=== PATIENT | male | born 1955 | race African-American/Black ===

== ENCOUNTER 2017-03-15 10:00 | Inpatient (IN) | payer OTHER ==
[2017-03-15 11:51] VITALS: BMI 24.1
[2017-03-15] MEDS ORDERED: P-EPHED 60MG/TRIPROLIDI 2.5MG TABLET PO PRN (17:33)
[2017-03-15] MEDS ORDERED: LOPERAMIDE HCL 2 MG CAPSULE PO PRN (17:33)
[2017-03-15] MEDS ORDERED: guaiFENesin/D-METHORPHAN HB 10 ML UNIT-DOSE CUPS PO PRN (17:33)
[2017-03-15] MEDS ORDERED: MAGNESIUM HYDROX 2400MG/30ML ORAL SUSPENSION 30 ML CUP PO PRN (17:33)
[2017-03-15] MEDS ORDERED: MAG HYDROX/AL HYDROX/SIMETH 30 ML UNIT-DOSE CUP PO PRN (17:33)
[2017-03-15] MEDS ORDERED: MAGNESIUM CITRATE 300 ML BOTTLE PO PRN (17:33)
[2017-03-15] MEDS ORDERED: ACETAMINOPHEN 325 MG TABLET (FP) PO PRN (17:33)
[2017-03-15] MEDS ORDERED: MENTHOL/PHENOL 1 EACH UD MM PRN (17:33)
[2017-03-15] MEDS ORDERED: NICOTINE POLACRILEX 2 MG GUM BC PRN (17:33)
[2017-03-15] MEDS ORDERED: diazePAM 5 MG TABLET PO PRN (17:33)
[2017-03-15] MEDS ORDERED: IBUPROFEN 400 MG TABLET (FP) PO PRN (17:33)
--- NOTE | 2017-03-15 17:33 | HP ---
COWS - Scale Resting Pulse: 0= [place] 80 or Below Sweatin= Chills/Flushing Restless Observation: 1= Difficult to Sit Still Pupil Size: 1= Pupils >than Normal Bone or Joint Aches: 1= Mild Discomfort Runny Nose/ Eye Tearin= Nasal Congestion GI Upset > 30mins: 2= Nausea/Diarrhea Tremor Observation: 2= Slight Tremor Visible Yawning Observation: 1= 1-2x During Session Anxiety or Irritability: 2=Irritable/Anxious Goose Flesh Skin: 3=Piloerection COWS Score: 15 Admission ROS S - HPI Chief Complaint: heroin withdrawal sx Allergies/Adverse Reactions: Allergies Allergy/AdvReac Type Severity Reaction Status Date / Time No Known Allergies Allergy Verified 03/15/17 16:28 History of Present Illness: 62 yo m w h/o opioid depenence using heroin daily, sniffs 2-3 bags, smokes marijuana several times a week. Last used heorin last night. no h/o seiuzres, no h/o dts PMHx neg no h/o od, no idu. reports heroin withdrawl sx present when he does nto use. se ROS Exam Limitations: No Limitations - Ebola screening Have you traveled outside of the country in the last 21 days: No Have you had contact with anyone from an Ebola affected area: No Have you been sick,other than usual withdrawal symptoms: No Do you have a fever: No - Review of Systems Constitutional: Chills, Diaphoresis, Night Sweats, Changes in sleep, Weakness, Unintentional Wgt. Loss EENT: reports: Nose Congestion Respiratory: reports: No Symptoms reported Cardiac: reports: No Symptoms Reported GI: reports: Constipated, Nausea, Poor Appetite, Poor Fluid Intake, Indigestion , Abdominal cramping : reports: No Symptoms Reported Musculoskeletal: reports: Back Pain Integumentary: reports: Flushing, Sweating Neuro: reports: Tremors, Weakness Endocrine: reports: No Symptoms Reported Hematology: reports: No Symptoms Reported Psychiatric: reports: Judgement Intact, Mood/Affect Appropiate, Orientated x3, Anxious, Depressed Other Systems: Reviewed and Negative Patient History - Patient Medical History Hx Anemia: No Hx Asthma: No Hx Chronic Obstructive Pulmonary Disease (COPD): No Hx Cancer: No Hx Cardiac Disorders: No Hx Congestive Heart Failure: No Hx Hypertension: No Hx Hypercholesterolemia: No Hx Pacemaker: No HX Cerebrovascular Accident: No Hx Seizures: No Hx Dementia: No Hx Diabetes: No Hx Gastrointestinal Disorders: No Hx Liver Disease: No Hx Genitourinary Disorders: No Hx Sexually Transmitted Disorders: No Hx Renal Disease (ESRD): No Hx Thyroid Disease: No Hx Human Immunodeficiency Virus (HIV): No Hx Hepatitis C: No Hx Depression: No Hx Suicide Attempt: No Hx Bipolar Disorder: No Hx Schizophrenia: No - Patient Surgical History Past Surgical History: No Anesthesia Reaction: No - PPD History Previous Implant?: Yes Documented Results: Positive w/o proof Implanted On Prior [facility] Admission?: No PPD to be Administered?: No - Reproductive History Patient is a Female of Child Bearing Age (11 -55 yrs old): No Patient : No - Smoking Cessation Smoking history: Current every day smoker Have you smoked in the past 12 months: Yes Aproximately how many cigarettes per day: 10 Hx Chewing Tobacco Use: No Initiated information on smoking cessation: Yes 'Breaking Loose' booklet given: 03/15/17 - Substance & Tx. History Hx Alcohol Use: No Hx Substance Use: Yes Substance Use Type: Heroin, Marijuana Hx Substance Use Treatment: Yes ([facility] 1 year ago, [facility] 2 mts ago) - Substances Abused Heroin Route: Inhalation Frequency: Daily Amount used: 3 bags and up Age of first use: 20 Date of Last Use: 03/14/17 Marijuana/Hashish Route: Smoking Frequency: 3-6 times per week Amount used: 1 joint Age of first use: 20 Date of Last Use: 03/08/17 Family Disease History - Family Disease History Family Disease History: Other: Father (alcohol ) Admission Physical Exam S - Vital Signs Vital Signs: Vital Signs - 24 hr 03/15/17 11:49 Temperature 96.2 F L Pulse Rate 57 L Respiratory 20 Rate Blood Pressure 116/74 - Physical General Appearance: Yes: Nourished, Appropriately Dressed, Disheveled, Thin, Tremorous, Irritable, Sweating, Anxious HEENTM: Yes: EOMI, Hearing grossly Normal, Normal ENT Inspection, Normocephalic , Normal Voice, ZEUS, Pharynx Normal, Nasal Congestion, Rhinorrhea Respiratory: Yes: Within Normal Limits, Chest Non-Tender, Lungs Clear, Normal Breath Sounds, No Respiratory Distress, No Accessory Muscle Use Neck: Yes: Within Normal Limits, No masses,lesions,Nodules, Supple, Trachea in good position Breast: Yes: Breast Exam Deferred Cardiology: Yes: Within Normal Limits, Regular Rhythm, Regular Rate, S1, S2 Abdominal: Yes: Normal Bowel Sounds, Non Tender, Flat, Soft Genitourinary: Yes: Within Normal Limits Back: Yes: Within Normal Limits, Normal Inspection Musculoskeletal: Yes: Within Normal Limits, full range of Motion, Gait Steady, Pelvis Stable Extremities: Yes: Normal Capillary Refill, Normal Range of Motion, Non-Tender, Tremors Neurological: Yes: hydraulic repairer II-XII NML intact, Fully Oriented, Alert, Motor Strength 5/5, Depressed Affect Integumentary: Yes: Normal Color, Warm, Diaphoresis, Moist Lymphatic: Yes: Within Normal Limits - Addiitonal Findings: withdrawal sx - Diagnostic (1) Opioid dependence with withdrawal Current Visit: Yes Status: Acute (2) Nicotine dependence Current Visit: Yes Status: Acute (3) Cannabis abuse Current Visit: Yes Status: Acute (4) Insomnia Current Visit: Yes Status: Acute Cleared for Admission [facility] - Detox or Rehab [facility] Level of Care: Medically Managed Detox Regimen/Protocol: Methadone [facility] Breath Alcohol Content Breath Alcohol Content: 0 Urine Drug Screen - Results Drug Screen Negative: No Urine Drug Screen Results: THC-Marijuana, OPI-Opiates
[2017-03-15] MEDS ORDERED: METHADONE HCL 10 MG TABLET (FOR DETOX USE ONLY) PO ONE ×2 (18:30→23:00)
[2017-03-15] MEDS: NICOTINE 14 MG/24 HOURS TOPICAL PATCH TD SCH (19:08)
[2017-03-15] MEDS: THIAMINE HCL 100 MG TABLET (FP) PO SCH (22:25)
[2017-03-16 01:22] LABS: URINE APPEARANCE CLEAR; URINE BILIRUBIN NEGATIVE (NEGATIVE); URINE BLOOD NEGATIVE (NEGATIVE); URINE COLOR LTYELLOW; URINE GLUCOSE (UA) NEGATIVE (NEGATIVE); URINE KETONE NEGATIVE (NEGATIVE); URINE NITRITE NEGATIVE (NEGATIVE); URINE PROTEIN NEGATIVE (NEGATIVE); URINE UROBILINOGEN NEGATIVE mg/dL (0.2-1.0)
[2017-03-16 09:43] LABS: MCH 33.3 pg (25.7-33.7); MCHC 33.5 g/dl (32.0-35.9); MEAN CELL VOLUME 99.3 fl (80-96); PLATELET COUNT 119 K/MM3 (134-434)
[2017-03-16] MEDS ORDERED: METHADONE HCL 10 MG TABLET (FOR DETOX USE ONLY) PO ONE (10:00)
[2017-03-16 10:19] LABS: ALBUMIN 3.3 g/dl (3.4-5.0); ALK PHOS 87 U/L (45-117); ANION GAP 5 (8-16); BILIRUBIN,TOTAL 0.4 mg/dL (0.2-1.0); CALCIUM 8.8 mg/dL (8.5-10.1); CO2 31 mmol/L (21-32); GLUCOSE,RANDOM 95 mg/dL (74-106); SGOT/AST 19 U/L (15-37); SGPT/ALT 25 U/L (12-78); TOT PROT 6.8 g/dl (6.4-8.2)
[2017-03-16] MEDS: PRENATAL VITAMINS W/ FOLIC ACID TABLET (FP) PO SCH (10:31)
[2017-03-16] MEDS: NICOTINE 14 MG/24 HOURS TOPICAL PATCH TD SCH (10:33)
[2017-03-16 10:40] LABS: URINE LEUK ESTERASE Negative (NEGATIVE)
--- NOTE | 2017-03-16 11:07 | PN ---
S COWS - Scale Resting Pulse: 0= [place] 80 or Below Sweatin= Chills/Flushing Restless Observation: 3= Extraneous Movement Pupil Size: 1= Pupils >than Normal Bone or Joint Aches: 2= Severe Diffuse Aches Runny Nose/ Eye Tearin= Runny Nose/Eyes GI Upset > 30mins: 2= Nausea/Diarrhea Tremor Observation of Outstretched Hands: 2= Slight Tremor Visible Yawning Observation: 1= 1-2x During Session Anxiety or Irritability: 2=Irritable/Anxious Goose Flesh Skin: 0=Smooth Skin COWS Score: 16 S Progress Note (SOAP) Subjective: alert,irritable,anxious,interrupted sleep,pain in the body and back,tremor Objective: 03/16/17 11:04 Vital Signs Temperature 97.5 F L 03/16/17 10:00 Pulse Rate 69 03/16/17 10:00 Respiratory Rate 18 03/16/17 10:00 Blood Pressure 111/73 03/16/17 10:00 O2 Sat by Pulse Oximetry (%) ekg sinus bradycardia,inverted t in 3 48/min no chest pain,no sob,no dizziness Laboratory Last Values WBC 7.0 K/mm3 (4.0-10.0) 03/16/17 07:00 RBC 3.60 M/mm3 (4.00-5.60) L 03/16/17 07:00 Hgb 12.0 GM/dL (11.7-16.9) 03/16/17 07:00 Hct 35.7 % (35.4-49) 03/16/17 07:00 MCV 99.3 fl (80-96) H 03/16/17 07:00 MCH 33.3 pg (25.7-33.7) 03/16/17 07:00 MCHC 33.5 g/dl (32.0-35.9) 03/16/17 07:00 RDW 13.0 % (11.9-15.9) 03/16/17 07:00 Plt Count 119 K/MM3 (134-434) L 03/16/17 07:00 MPV 9.0 fl (7.5-11.1) 03/16/17 07:00 Sodium 143 mmol/L (136-145) 03/16/17 07:00 Potassium 4.2 mmol/L (3.5-5.1) 03/16/17 07:00 Chloride 107 mmol/L (98-107) 03/16/17 07:00 Carbon Dioxide 31 mmol/L (21-32) 03/16/17 07:00 Anion Gap 5 (8-16) L 03/16/17 07:00 BUN 22 mg/dL (7-18) H 03/16/17 07:00 Creatinine 1.0 mg/dL (0.7-1.3) 03/16/17 07:00 Creat Clearance w eGFR > 60 (>60) 03/16/17 07:00 Random Glucose 95 mg/dL (74-106) 03/16/17 07:00 Calcium 8.8 mg/dL (8.5-10.1) 03/16/17 07:00 Total Bilirubin 0.4 mg/dL (0.2-1.0) 03/16/17 07:00 AST 19 U/L (15-37) 03/16/17 07:00 ALT 25 U/L (12-78) 03/16/17 07:00 Alkaline Phosphatase 87 U/L (45-117) 03/16/17 07:00 Total Protein 6.8 g/dl (6.4-8.2) 03/16/17 07:00 Albumin 3.3 g/dl (3.4-5.0) L 03/16/17 07:00 Urine Color Ltyellow 03/15/17 22:22 Urine Appearance Clear 03/15/17 22:22 Urine pH 6.0 (5.0-8.0) 03/15/17 22:22 Ur Specific [place] 1.015 (1.005-1.025) 03/15/17 22:22 Urine Protein Negative (NEGATIVE) 03/15/17 22:22 Urine Glucose (UA) Negative (NEGATIVE) 03/15/17 22:22 Urine Ketones Negative (NEGATIVE) 03/15/17 22:22 Urine Blood Negative (NEGATIVE) 03/15/17 22:22 Urine Nitrite Negative (NEGATIVE) 03/15/17 22:22 Urine Bilirubin Negative (NEGATIVE) 03/15/17 22:22 Urine Urobilinogen Negative mg/dL (0.2-1.0) 03/15/17 22:22 Ur Leukocyte Esterase Negative (NEGATIVE) 10/16/17 22:22 RPR Titer Nonreactive (NONREACTIVE) 03/16/17 07:00 Assessment: 03/16/17 11:07 withdrawal symptom Plan: continue detox
[2017-03-16 11:29] LABS: SICKLE CELL SCREEN NEGATIVE (NEGATIVE)
[2017-03-16] MEDS ORDERED: FLU VACCINE QUAD 60 MCG/0.5 ML (MDV 17-18) IM ONE (12:00)
[2017-03-16] MEDS: ZOLPIDEM TARTRATE 10 MG TABLET (PARK CARE ONLY) PO PRN (22:29)
[2017-03-16] MEDS: THIAMINE HCL 100 MG TABLET (FP) PO SCH (22:30)
[2017-03-17] MEDS ORDERED: METHADONE HCL 5 MG TABLET (FOR DETOX USE ONLY) PO ONE (10:00)
[2017-03-17] MEDS: PRENATAL VITAMINS W/ FOLIC ACID TABLET (FP) PO SCH (10:26)
[2017-03-17] MEDS: NICOTINE 14 MG/24 HOURS TOPICAL PATCH TD SCH (10:27)
--- NOTE | 2017-03-17 11:33 | PN ---
BHS COWS - Scale Resting Pulse: 0= [place] 80 or Below Sweatin= Chills/Flushing Restless Observation: 3= Extraneous Movement Pupil Size: 1= Pupils >than Normal Bone or Joint Aches: 2= Severe Diffuse Aches Runny Nose/ Eye Tearin= Runny Nose/Eyes GI Upset > 30mins: 2= Nausea/Diarrhea Tremor Observation of Outstretched Hands: 2= Slight Tremor Visible Yawning Observation: 1= 1-2x During Session Anxiety or Irritability: 2=Irritable/Anxious Goose Flesh Skin: 0=Smooth Skin COWS Score: 16 S Progress Note (SOAP) Subjective: alert,pain in body,and back,tremor,interrupted sleep Objective: 03/17/17 11:33 Vital Signs Temperature 96.9 F L 03/17/17 10:00 Pulse Rate 65 03/17/17 10:00 Respiratory Rate 20 03/17/17 10:00 Blood Pressure 117/68 03/17/17 10:00 O2 Sat by Pulse Oximetry (%) Laboratory Last Values WBC 7.0 K/mm3 (4.0-10.0) 03/16/17 07:00 RBC 3.60 M/mm3 (4.00-5.60) L 03/16/17 07:00 Hgb 12.0 GM/dL (11.7-16.9) 03/16/17 07:00 Hct 35.7 % (35.4-49) 03/16/17 07:00 MCV 99.3 fl (80-96) H 03/16/17 07:00 MCH 33.3 pg (25.7-33.7) 03/16/17 07:00 MCHC 33.5 g/dl (32.0-35.9) 03/16/17 07:00 RDW 13.0 % (11.9-15.9) 03/16/17 07:00 Plt Count 119 K/MM3 (134-434) L 03/16/17 07:00 MPV 9.0 fl (7.5-11.1) 03/16/17 07:00 Sickle Cell Screen Negative (NEGATIVE) 03/16/17 07:00 Sodium 143 mmol/L (136-145) 03/16/17 07:00 Potassium 4.2 mmol/L (3.5-5.1) 03/16/17 07:00 Chloride 107 mmol/L (98-107) 03/16/17 07:00 Carbon Dioxide 31 mmol/L (21-32) 03/16/17 07:00 Anion Gap 5 (8-16) L 03/16/17 07:00 BUN 22 mg/dL (7-18) H 03/16/17 07:00 Creatinine 1.0 mg/dL (0.7-1.3) 03/16/17 07:00 Creat Clearance w eGFR > 60 (>60) 03/16/17 07:00 Random Glucose 95 mg/dL (74-106) 03/16/17 07:00 Calcium 8.8 mg/dL (8.5-10.1) 03/16/17 07:00 Total Bilirubin 0.4 mg/dL (0.2-1.0) 03/16/17 07:00 AST 19 U/L (15-37) 03/16/17 07:00 ALT 25 U/L (12-78) 03/16/17 07:00 Alkaline Phosphatase 87 U/L (45-117) 03/16/17 07:00 Total Protein 6.8 g/dl (6.4-8.2) 03/16/17 07:00 Albumin 3.3 g/dl (3.4-5.0) L 03/16/17 07:00 Urine Color Ltyellow 03/15/17 22:22 Urine Appearance Clear 03/15/17 22:22 Urine pH 6.0 (5.0-8.0) 03/15/17 22:22 Ur Specific [place] 1.015 (1.005-1.025) 03/15/17 22:22 Urine Protein Negative (NEGATIVE) 03/15/17 22:22 Urine Glucose (UA) Negative (NEGATIVE) 03/15/17 22:22 Urine Ketones Negative (NEGATIVE) 03/15/17 22:22 Urine Blood Negative (NEGATIVE) 03/15/17 22:22 Urine Nitrite Negative (NEGATIVE) 03/15/17 22:22 Urine Bilirubin Negative (NEGATIVE) 03/15/17 22:22 Urine Urobilinogen Negative mg/dL (0.2-1.0) 03/15/17 22:22 Ur Leukocyte Esterase Negative (NEGATIVE) 03/15/17 22:22 RPR Titer Nonreactive (NONREACTIVE) 03/16/17 07:00 Hepatitis C Antibody 0.1 s/co ratio (0.0-0.9) 03/15/17 07:00 Assessment: 03/17/17 11:34 withdrawal symptom Plan: continue detox
--- NOTE | 2017-03-17 12:00 | EKG ---
Test Reason : Blood Pressure : / mmHG Vent. Rate : 048 BPM Atrial Rate : 048 BPM P-R Int : 208 ms QRS Dur : 110 ms QT Int : 428 ms P-R-T Axes : 054 026 016 degrees QTc Int : 382 ms SINUS BRADYCARDIA INCOMPLETE RIGHT BUNDLE BRANCH BLOCK SEPTAL INFARCT , AGE UNDETERMINED ABNORMAL ECG NO PREVIOUS ECGS AVAILABLE Confirmed by STEVENSON HUERTA, AIDA ([id number]) on 03/17/2017 11:59:37 AM Referred By: Confirmed By:AIDA GAMINO MD
[2017-03-17] MEDS ORDERED: COLLOIDAL OATMEAL 1 BAR EACH TP PRN (14:11)
[2017-03-17] MEDS: THIAMINE HCL 100 MG TABLET (FP) PO SCH (22:26)
[2017-03-17] MEDS: ZOLPIDEM TARTRATE 10 MG TABLET (PARK CARE ONLY) PO PRN (22:27)
[2017-03-18] MEDS ORDERED: METHADONE HCL 5 MG TABLET (FOR DETOX USE ONLY) PO ONE (10:00)
--- NOTE | 2017-03-18 10:42 | PN ---
BHS Progress Note (SOAP) Subjective: alert,irritable,anxious,interrupted sleep,pain in the body Objective: 03/18/17 10:41 Vital Signs Temperature 97.9 F 03/18/17 09:53 Pulse Rate 65 03/18/17 09:53 Respiratory Rate 18 03/18/17 09:53 Blood Pressure 116/66 03/18/17 09:53 O2 Sat by Pulse Oximetry (%) Assessment: 03/18/17 10:41 withdrawal symptom Plan: continue detox
[2017-03-18] MEDS: PRENATAL VITAMINS W/ FOLIC ACID TABLET (FP) PO SCH (10:55)
[2017-03-18] MEDS: NICOTINE 14 MG/24 HOURS TOPICAL PATCH TD SCH (10:58)
[2017-03-18] MEDS: THIAMINE HCL 100 MG TABLET (FP) PO SCH (22:22)
[2017-03-18] MEDS: hydrOXYzine PAMOATE 50 MG CAPSULE (FP) PO PRN (22:24)
--- NOTE | 2017-03-19 09:45 | PN ---
S Progress Note (SOAP) Subjective: alert,irritable,anxious,interrupted sleep Objective: 03/19/17 09:44 Vital Signs Temperature 98 F 03/19/17 06:31 Pulse Rate 62 03/19/17 06:31 Respiratory Rate 16 03/19/17 06:31 Blood Pressure 102/51 03/19/17 06:31 O2 Sat by Pulse Oximetry (%) Assessment: 03/19/17 09:44 withdrawal symptom Plan: continue detox,discharge in am
[2017-03-19] MEDS ORDERED: METHADONE HCL 10 MG TABLET (FOR DETOX USE ONLY) PO ONE (10:00)
[2017-03-19] MEDS: PRENATAL VITAMINS W/ FOLIC ACID TABLET (FP) PO SCH (10:40)
[2017-03-19] MEDS: NICOTINE 14 MG/24 HOURS TOPICAL PATCH TD SCH (10:40)
[2017-03-19] MEDS: THIAMINE HCL 100 MG TABLET (FP) PO SCH (22:42)
[2017-03-19] MEDS: hydrOXYzine PAMOATE 50 MG CAPSULE (FP) PO PRN (22:43)
[2017-03-20] MEDS ORDERED: METHADONE HCL 5 MG TABLET (FOR DETOX USE ONLY) PO ONE (06:00)
--- NOTE | 2017-03-20 08:39 | DS ---
[facility] Detox Discharge Summary Admission Date: 03/15/17 Discharge Date: 03/20/17 - History Present History: Opioid Dependence Pertinent Past History: above - Physical Exam Results Vital Signs: Vital Signs Temperature 97.7 F 03/20/17 06:33 Pulse Rate 66 03/20/17 06:33 Respiratory Rate 18 03/20/17 06:33 Blood Pressure 100/60 03/20/17 06:33 O2 Sat by Pulse Oximetry (%) Pertinent Admission Physical Exam Findings: admitted in withdrawal medically stable on dc detox completed dc today Laboratory Tests 03/15/17 03/15/17 03/16/17 07:00 22:22 07:00 WBC 7.0 RBC 3.60 L Hgb 12.0 Hct 35.7 MCV 99.3 H MCH 33.3 MCHC 33.5 RDW 13.0 Plt Count 119 L MPV 9.0 Sickle Cell Screen Negative Sodium Potassium Chloride Carbon Dioxide Anion Gap BUN Creatinine Creat Clearance w eGFR Random Glucose Calcium Total Bilirubin AST ALT Alkaline Phosphatase Total Protein Albumin Urine Color Ltyellow Urine Appearance Clear Urine pH 6.0 Ur Specific [place] 1.015 Urine Protein Negative Urine Glucose (UA) Negative Urine Ketones Negative Urine Blood Negative Urine Nitrite Negative Urine Bilirubin Negative Urine Urobilinogen Negative Ur Leukocyte Esterase Negative RPR Titer Hepatitis C Antibody 0.1 03/16/17 03/16/17 07:00 07:00 WBC RBC Hgb Hct MCV MCH MCHC RDW Plt Count MPV Sickle Cell Screen Sodium 143 Potassium 4.2 Chloride 107 Carbon Dioxide 31 Anion Gap 5 L BUN 22 H Creatinine 1.0 Creat Clearance w eGFR > 60 Random Glucose 95 Calcium 8.8 Total Bilirubin 0.4 AST 19 ALT 25 Alkaline Phosphatase 87 Total Protein 6.8 Albumin 3.3 L Urine Color Urine Appearance Urine pH Ur Specific [place] Urine Protein Urine Glucose (UA) Urine Ketones Urine Blood Urine Nitrite Urine Bilirubin Urine Urobilinogen Ur Leukocyte Esterase RPR Titer Nonreactive Hepatitis C Antibody Vital Signs - 24 hr 03/19/17 03/19/17 03/19/17 09:47 14:08 18:07 Temperature 98.1 F 98.8 F 97.7 F Pulse Rate 72 68 69 Respiratory 18 16 20 Rate Blood Pressure 106/72 126/72 123/67 03/19/17 03/20/17 03/20/17 23:48 00:30 03:30 Temperature 97.7 F Pulse Rate 66 Respiratory 18 18 18 Rate Blood Pressure 134/62 03/20/17 06:33 Temperature 97.7 F Pulse Rate 66 Respiratory 18 Rate Blood Pressure 100/60 - Treatment Hospital Course: Detox Protocol Followed, Detoxed Safely, Responded well, Discharged Condition Good, Rehab Referral Accepted - Medication Discharge Medications: Ambulatory Orders NK [No Known Home Medication] 03/15/17 - Diagnosis (1) Cannabis abuse Current Visit: Yes Status: Acute (2) Nicotine dependence Current Visit: Yes Status: Acute (3) Opioid dependence with withdrawal Current Visit: Yes Status: Acute - AMA Did Patient Leave Against Medical Advice: No
[2017-03-20 11:11] VITALS: BP 126/65; PULSE 82; TEMP 98.2
== END 2017-03-20 11:05 | disposition home or self-care (01) | DRG 773 ==
LOC: YASAS 10:00 → Y6N 17:52
PROVIDERS: ADMIT Internal Medicine; ATTEND Internal Medicine
PROC: HZ2ZZZZ Detoxification Services for Substance Abuse Treatment (ICD-10-PCS; principal; 2017-03-15)
DX: F11.23 Opioid dependence with withdrawal (principal); F12.10 Cannabis abuse, uncomplicated; F17.210 Nicotine dependence, cigarettes, uncomplicated; G47.00 Insomnia, unspecified
CPT/HCPCS: 36415; 71020-TC; 80053; 81003; 85027; 85660; 86593; 86803; 90688; 93005; 93010; G0008

== ENCOUNTER 2017-04-30 13:24 | Inpatient (IN) | payer OTHER ==
[2017-04-30 14:00] VITALS: BMI 23.8
--- NOTE | 2017-04-30 17:49 | HP ---
COWS - Scale Resting Pulse: 0= [place] 80 or Below Sweatin= Chills/Flushing Restless Observation: 3= Extraneous Movement Pupil Size: 0= Normal to Room Light Bone or Joint Aches: 2= Severe Diffuse Aches Runny Nose/ Eye Tearin= Runny Nose/Eyes GI Upset > 30mins: 1= Stomach Cramp Tremor Observation: 2= Slight Tremor Visible Yawning Observation: 1= 1-2x During Session Anxiety or Irritability: 2=Irritable/Anxious Goose Flesh Skin: 3=Piloerection COWS Score: 17 Admission ROS [facility] Chief Complaint: "I'm here because I was mandated by [facility] Public Assistance Program." Patient is here to Detox from Heroin. Allergies/Adverse Reactions: Allergies Allergy/AdvReac Type Severity Reaction Status Date / Time No Known Allergies Allergy Verified 04/30/17 16:09 History of Present Illness: Patient is a 62 YO male here to Detox form Heroin. Patient has had one previous Detox admission at [facility] in 02/2017. Patient also had previous detox admissions at [facility] (2014) and [facility] (2015), and [facility] (2014). Longest period of non-drug use in recent years: approx. 13 months (2013 - 2014). Exam Limitations: No Limitations - Ebola screening Have you traveled outside of the country in the last 21 days: No (N) Have you had contact with anyone from an Ebola affected area: No Have you been sick,other than usual withdrawal symptoms: No Do you have a fever: No - Review of Systems Constitutional: Chills, Diaphoresis, Fever, Loss of Appetite, Malaise, Night Sweats, Changes in sleep, Unintentional Wgt. Loss (Lost approx. 15 lbs. over last 6 months.) EENT: reports: No Symptoms Reported Respiratory: reports: No Symptoms reported Cardiac: reports: Palpitations GI: reports: Constipated, Poor Appetite, Indigestion, Abdominal cramping : reports: Other (Occasional Urinary Hesitancy.) Musculoskeletal: reports: Back Pain, Muscle Pain Integumentary: reports: No Symptoms Reported Neuro: reports: Headache, Tremors Endocrine: reports: No Symptoms Reported Hematology: reports: No Symptoms Reported Psychiatric: reports: No Sypmtoms Reported, Judgement Intact, Mood/Affect Appropiate, Orientated x3, Anxious Other Systems: Reviewed and Negative Patient History - Patient Medical History Hx Anemia: No Hx Asthma: No Hx Chronic Obstructive Pulmonary Disease (COPD): No Hx Cancer: No Hx Cardiac Disorders: No Hx Congestive Heart Failure: No Hx Hypertension: No Hx Hypercholesterolemia: No Hx Pacemaker: No HX Cerebrovascular Accident: No Hx Seizures: No Hx Dementia: No Hx Diabetes: No Hx Gastrointestinal Disorders: No Hx Liver Disease: No Hx Genitourinary Disorders: No Hx Sexually Transmitted Disorders: No Hx Renal Disease (ESRD): No Hx Thyroid Disease: No Hx Human Immunodeficiency Virus (HIV): No (Negative History.) Hx Hepatitis C: No (Last Tested: 02/2017: NEGATIVE.) Hx Depression: No Hx Suicide Attempt: No (PATIENT DENIES CURRENT SI / HI.) Hx Bipolar Disorder: No Hx Schizophrenia: No Other Medical History: DNENIES. - Patient Surgical History Past Surgical History: No Hx Neurologic Surgery: No Hx Cataract Extraction: No Hx Cardiac Surgery: No Hx Lung Surgery: No Hx Breast Surgery: No Hx Breast Biopsy: No Hx Abdominal Surgery: No Hx Appendectomy: No Hx Cholecystectomy: No Hx Genitourinary Surgery: No Hx Orthopedic Surgery: No Other Surgical History: DENIES. Anesthesia Reaction: No - PPD History Previous Implant?: Yes Documented Results: Positive w/proof (CXR at [facility] (02/2017): NEGATIVE for Acute Disease. Completed Full Course of antibiotic Treatment in past.) Implanted On Prior [facility] Admission?: No PPD to be Administered?: No - Reproductive History Patient is a Female of Child Bearing Age (11 -55 yrs old): No (PATIENT IS MALE.) - Smoking Cessation Smoking history: Current every day smoker Have you smoked in the past 12 months: Yes Aproximately how many cigarettes per day: 10 Cigars Per Day: 0 Hx Chewing Tobacco Use: No Initiated information on smoking cessation: Yes 'Breaking Loose' booklet given: 04/30/17 (GIVEN ON UNIT.) - Substance & Tx. History Hx Alcohol Use: No Hx Substance Use: Yes Substance Use Type: Cocaine, Heroin, Marijuana Hx Substance Use Treatment: Yes (Detox admission at [facility]: 02/2017. Prior Detox admissions at other locations) - Substances Abused Heroin Route: Inhalation Frequency: Daily Amount used: 2 bags Age of first use: 20 Date of Last Use: 04/29/17 Cocaine Route: Inhalation Frequency: 1-2 times per week Amount used: $20 Age of first use: 20 Date of Last Use: 04/27/17 Marijuana/Hashish Route: Smoking Frequency: 1-2 times per week Amount used: 1 bag Age of first use: 20 Date of Last Use: 04/23/17 Family Disease History - Family Disease History Family Disease History: Other: Father (Alcohol, .), Mother (Kidney disease, .) Admission Physical Exam [facility] - Vital Signs Vital Signs: Vital Signs - 24 hr 04/30/17 13:58 Temperature 98.8 F Pulse Rate 80 Respiratory 18 Rate Blood Pressure 140/80 - Physical General Appearance: Yes: No Apparent Distress, Nourished, Appropriately Dressed , Tremorous, Anxious HEENTM: Yes: Hearing grossly Normal, Normocephalic, Normal Voice, ZEUS, Pharynx Normal Respiratory: Yes: Chest Non-Tender, Lungs Clear, No Respiratory Distress, No Accessory Muscle Use Neck: Yes: No masses,lesions,Nodules, Supple, Trachea in good position Breast: Yes: Breast Exam Deferred Cardiology: Yes: Regular Rhythm, Regular Rate, S1, S2 Abdominal: Yes: Normal Bowel Sounds, Non Tender, Flat, Soft Genitourinary: Yes: Within Normal Limits Back: Yes: Decreased Range of Motion Musculoskeletal: Yes: Gait Steady, Back pain Extremities: Yes: Normal Capillary Refill, Normal Range of Motion, Non-Tender, Tremors Neurological: Yes: Fully Oriented, Alert, Normal Mood/Affect, Normal Response Integumentary: Yes: Normal Color, Dry, Warm Lymphatic: Yes: Within Normal Limits - Diagnostic (1) Cannabis dependence, uncomplicated Current Visit: Yes Status: Chronic (2) Cocaine dependence, uncomplicated Current Visit: Yes Status: Acute (3) Nicotine dependence Current Visit: Yes Status: Chronic Qualifiers: Nicotine product type: cigarettes Substance use status: uncomplicated Qualified Code(s): F17.210 - Nicotine dependence, cigarettes, uncomplicated (4) Opioid dependence with withdrawal Current Visit: Yes Status: Acute (5) History of positive PPD Current Visit: Yes Status: Acute Comment: Treated. Cleared for Admission [facility] - Detox or Rehab [facility] Level of Care: Medically Managed Detox Regimen/Protocol: Methadone [facility] Breath Alcohol Content Breath Alcohol Content: 0 Urine Drug Screen - Results Drug Screen Negative: No Urine Drug Screen Results: THC-Marijuana, CLAU-Cocaine, OPI-Opiates, MTD- Methadone
[2017-04-30] MEDS ORDERED: guaiFENesin/D-METHORPHAN HB 10 ML UNIT-DOSE CUPS PO PRN (18:17)
[2017-04-30] MEDS ORDERED: NICOTINE POLACRILEX 2 MG GUM BC PRN (18:17)
[2017-04-30] MEDS ORDERED: IBUPROFEN 400 MG TABLET (FP) PO PRN (18:17)
[2017-04-30] MEDS ORDERED: MAG HYDROX/AL HYDROX/SIMETH 30 ML UNIT-DOSE CUP PO PRN (18:17)
[2017-04-30] MEDS ORDERED: LOPERAMIDE HCL 2 MG CAPSULE PO PRN (18:17)
[2017-04-30] MEDS ORDERED: MAGNESIUM HYDROX 2400MG/30ML ORAL SUSPENSION 30 ML CUP PO PRN (18:17)
[2017-04-30] MEDS ORDERED: METHADONE HCL 10 MG TABLET (FOR DETOX USE ONLY) PO ONE ×2 (18:17→23:00)
[2017-04-30] MEDS ORDERED: MENTHOL/PHENOL 1 EACH UD MM PRN (18:17)
[2017-04-30] MEDS ORDERED: MAGNESIUM CITRATE 300 ML BOTTLE PO PRN (18:17)
[2017-04-30] MEDS ORDERED: P-EPHED 60MG/TRIPROLIDI 2.5MG TABLET PO PRN (18:17)
[2017-04-30] MEDS ORDERED: ACETAMINOPHEN 325 MG TABLET (FP) PO PRN (18:17)
[2017-04-30] MEDS: THIAMINE HCL 100 MG TABLET (FP) PO SCH (22:30)
[2017-04-30] MEDS: diazePAM 5 MG TABLET PO PRN (22:32)
[2017-05-01 01:35] LABS: URINE APPEARANCE CLOUDY; URINE BILIRUBIN NEGATIVE (NEGATIVE); URINE BLOOD NEGATIVE (NEGATIVE); URINE COLOR AMBER; URINE GLUCOSE (UA) NEGATIVE (NEGATIVE); URINE KETONE TRACE (NEGATIVE); URINE NITRITE NEGATIVE (NEGATIVE)
[2017-05-01 01:37] LABS: URINE PROTEIN 1+ (NEGATIVE)
[2017-05-01 02:07] LABS: CALCIUM OXALATE CRYSTALS MODERATE /hpf (NONE SEEN); URINE MUCUS MANY; URINE RBC 4 /hpf (0-3); URINE WBC 1 /hpf (3-5)
--- NOTE | 2017-05-01 09:02 | EKG ---
Test Reason : Blood Pressure : / mmHG Vent. Rate : 066 BPM Atrial Rate : 066 BPM P-R Int : 162 ms QRS Dur : 090 ms QT Int : 420 ms P-R-T Axes : 072 026 048 degrees QTc Int : 440 ms NORMAL SINUS RHYTHM POSSIBLE LEFT ATRIAL ENLARGEMENT BORDERLINE ECG WHEN COMPARED WITH ECG OF 15-MAR-2017 18:18, CRITERIA FOR SEPTAL INFARCT ARE NO LONGER PRESENT T WAVE INVERSION NO LONGER EVIDENT IN ANTERIOR LEADS QT HAS LENGTHENED Confirmed by STEVENSON HUERTA, AIDA ([id number]) on 05/01/2017 9:02:32 AM Referred By: Confirmed By:AIDA GAMINO MD
[2017-05-01] MEDS ORDERED: METHADONE HCL 10 MG TABLET (FOR DETOX USE ONLY) PO ONE (10:00)
[2017-05-01 10:22] LABS: ALBUMIN 3.1 g/dl (3.4-5.0); ALK PHOS 75 U/L (45-117); ANION GAP 4 (8-16); BILIRUBIN,TOTAL 0.3 mg/dL (0.2-1.0); CALCIUM 8.5 mg/dL (8.5-10.1); CO2 28 mmol/L (21-32); GLUCOSE,RANDOM 98 mg/dL (74-106); SGOT/AST 26 U/L (15-37); SGPT/ALT 25 U/L (12-78); TOT PROT 6.1 g/dl (6.4-8.2)
[2017-05-01 10:28] LABS: MCH 33.4 pg (25.7-33.7); MCHC 33.6 g/dl (32.0-35.9); MEAN CELL VOLUME 99.5 fl (80-96); MEAN PLT VOLUME 8.9 fl (7.5-11.1); PLATELET COUNT 103 K/MM3 (134-434); WHITE BLOOD COUNT 5.2 K/mm3 (4.0-10.0)
[2017-05-01 10:41] LABS: URINE LEUK ESTERASE Negative (NEGATIVE)
[2017-05-01] MEDS: PRENATAL VITAMINS W/ FOLIC ACID TABLET (FP) PO SCH (10:51)
--- NOTE | 2017-05-01 13:14 | PN ---
S COWS - Scale Resting Pulse: 0= [place] 80 or Below Sweatin=Flushed/Facial Moisture Restless Observation: 1= Difficult to Sit Still Pupil Size: 0= Normal to Room Light Bone or Joint Aches: 1= Mild Discomfort Runny Nose/ Eye Tearin= Runny Nose/Eyes GI Upset > 30mins: 1= Stomach Cramp Tremor Observation of Outstretched Hands: 1= Tremor [place], Not Seen Yawning Observation: 1= 1-2x During Session Anxiety or Irritability: 2=Irritable/Anxious Goose Flesh Skin: 0=Smooth Skin COWS Score: 11 S Progress Note (SOAP) Subjective: Body aches, sweating,interrupted sleep,restless Objective: 05/01/17 13:13 Vital Signs - 8 hr 05/01/17 05/01/17 06:00 10:00 Temperature 98.1 F Pulse Rate 63 68 Respiratory 18 20 Rate Blood Pressure 97/59 115/65 Laboratory Tests 04/30/17 05/01/17 05/01/17 21:30 08:20 08:20 WBC 5.2 RBC 3.23 L Hgb 10.8 L Hct 32.1 L MCV 99.5 H MCH 33.4 MCHC 33.6 RDW 13.0 Plt Count 103 L MPV 8.9 Sodium 139 Potassium 4.1 Chloride 107 Carbon Dioxide 28 Anion Gap 4 L BUN 15 D Creatinine 1.0 Creat Clearance w eGFR > 60 Random Glucose 98 Calcium 8.5 Total Bilirubin 0.3 D AST 26 D ALT 25 Alkaline Phosphatase 75 Total Protein 6.1 L Albumin 3.1 L Urine Color Kaylee Urine Appearance Cloudy Urine pH 5.0 Ur Specific [place] 1.034 Urine Protein 1+ H Urine Glucose (UA) Negative Urine Ketones Trace H Urine Blood Negative Urine Nitrite Negative Urine Bilirubin Negative Urine Urobilinogen 2.0 Ur Leukocyte Esterase Negative Urine WBC (Auto) 1 Urine RBC (Auto) 4 Ur Epithelial Cells Rare Calcium Oxalate Crystal Moderate Urine Mucus Many RPR Titer 05/01/17 08:20 WBC RBC Hgb Hct MCV MCH MCHC RDW Plt Count MPV Sodium Potassium Chloride Carbon Dioxide Anion Gap BUN Creatinine Creat Clearance w eGFR Random Glucose Calcium Total Bilirubin AST ALT Alkaline Phosphatase Total Protein Albumin Urine Color Urine Appearance Urine pH Ur Specific [place] Urine Protein Urine Glucose (UA) Urine Ketones Urine Blood Urine Nitrite Urine Bilirubin Urine Urobilinogen Ur Leukocyte Esterase Urine WBC (Auto) Urine RBC (Auto) Ur Epithelial Cells Calcium Oxalate Crystal Urine Mucus RPR Titer Nonreactive labs noted Assessment: 05/01/17 13:13 Withdrawal sx. Plan: Continue detox
[2017-05-01] MEDS: THIAMINE HCL 100 MG TABLET (FP) PO SCH (22:37)
[2017-05-02] MEDS ORDERED: METHADONE HCL 5 MG TABLET (FOR DETOX USE ONLY) PO ONE (10:00)
[2017-05-02] MEDS: PRENATAL VITAMINS W/ FOLIC ACID TABLET (FP) PO SCH (10:41)
[2017-05-02] MEDS ORDERED: COLLOIDAL OATMEAL 1 BAR EACH TP PRN (11:55)
--- NOTE | 2017-05-02 11:57 | PN ---
BHS COWS - Scale Resting Pulse: 0= [place] 80 or Below Sweatin= Chills/Flushing Restless Observation: 0= Sits Still Pupil Size: 0= Normal to Room Light Bone or Joint Aches: 2= Severe Diffuse Aches Runny Nose/ Eye Tearin= Nasal Congestion GI Upset > 30mins: 1= Stomach Cramp Tremor Observation of Outstretched Hands: 1= Tremor [place], Not Seen Yawning Observation: 0= None Anxiety or Irritability: 0= None Goose Flesh Skin: 0=Smooth Skin COWS Score: 6 BHS Progress Note (SOAP) Subjective: sweat body ache nasal congestion GI upset Objective: 05/02/17 11:56 Vital Signs Temperature 97.7 F 05/02/17 09:45 Pulse Rate 59 L 05/02/17 09:45 Respiratory Rate 20 05/02/17 09:45 Blood Pressure 109/68 05/02/17 09:45 O2 Sat by Pulse Oximetry (%) Laboratory Last Values WBC 5.2 K/mm3 (4.0-10.0) 05/01/17 08:20 RBC 3.23 M/mm3 (4.00-5.60) L 05/01/17 08:20 Hgb 10.8 GM/dL (11.7-16.9) L 05/01/17 08:20 Hct 32.1 % (35.4-49) L 05/01/17 08:20 MCV 99.5 fl (80-96) H 05/01/17 08:20 MCH 33.4 pg (25.7-33.7) 05/01/17 08:20 MCHC 33.6 g/dl (32.0-35.9) 05/01/17 08:20 RDW 13.0 % (11.9-15.9) 05/01/17 08:20 Plt Count 103 K/MM3 (134-434) L 05/01/17 08:20 MPV 8.9 fl (7.5-11.1) 05/01/17 08:20 Sodium 139 mmol/L (136-145) 05/01/17 08:20 Potassium 4.1 mmol/L (3.5-5.1) 05/01/17 08:20 Chloride 107 mmol/L (98-107) 05/01/17 08:20 Carbon Dioxide 28 mmol/L (21-32) 05/01/17 08:20 Anion Gap 4 (8-16) L 05/01/17 08:20 BUN 15 mg/dL (7-18) D 05/01/17 08:20 Creatinine 1.0 mg/dL (0.7-1.3) 05/01/17 08:20 Creat Clearance w eGFR > 60 (>60) 05/01/17 08:20 Random Glucose 98 mg/dL (74-106) 05/01/17 08:20 Calcium 8.5 mg/dL (8.5-10.1) 05/01/17 08:20 Total Bilirubin 0.3 mg/dL (0.2-1.0) D 05/01/17 08:20 AST 26 U/L (15-37) D 05/01/17 08:20 ALT 25 U/L (12-78) 05/01/17 08:20 Alkaline Phosphatase 75 U/L (45-117) 05/01/17 08:20 Total Protein 6.1 g/dl (6.4-8.2) L 05/01/17 08:20 Albumin 3.1 g/dl (3.4-5.0) L 05/01/17 08:20 Urine Color Kaylee 04/30/17 21:30 Urine Appearance Cloudy 04/30/17 21:30 Urine pH 5.0 (5.0-8.0) 04/30/17 21:30 Ur Specific [place] 1.034 (1.001-1.035) 04/30/17 21:30 Urine Protein 1+ (NEGATIVE) H 04/30/17 21:30 Urine Glucose (UA) Negative (NEGATIVE) 04/30/17 21:30 Urine Ketones Trace (NEGATIVE) H 04/30/17 21:30 Urine Blood Negative (NEGATIVE) 04/30/17 21:30 Urine Nitrite Negative (NEGATIVE) 04/30/17 21:30 Urine Bilirubin Negative (NEGATIVE) 04/30/17 21:30 Urine Urobilinogen 2.0 mg/dL (0.2-1.0) 04/30/17 21:30 Ur Leukocyte Esterase Negative (NEGATIVE) 04/30/17 21:30 Urine WBC (Auto) 1 /hpf (3-5) 04/30/17 21:30 Urine RBC (Auto) 4 /hpf (0-3) 04/30/17 21:30 Ur Epithelial Cells Rare /HPF (FEW) 04/30/17 21:30 Calcium Oxalate Crystal Moderate /hpf (NONE SEEN) 04/30/17 21:30 Urine Mucus Many 04/30/17 21:30 RPR Titer Nonreactive (NONREACTIVE) 05/01/17 08:20 lab noted Assessment: 05/02/17 11:56 withdrawal sx Plan: continue detox
[2017-05-02] MEDS: diazePAM 5 MG TABLET PO PRN (18:46)
[2017-05-02] MEDS: THIAMINE HCL 100 MG TABLET (FP) PO SCH (22:32)
[2017-05-03] MEDS ORDERED: METHADONE HCL 5 MG TABLET (FOR DETOX USE ONLY) PO ONE (10:00)
[2017-05-03] MEDS: PRENATAL VITAMINS W/ FOLIC ACID TABLET (FP) PO SCH (10:21)
--- NOTE | 2017-05-03 11:46 | PN ---
BHS Progress Note (SOAP) Subjective: constipation sweats agitation Objective: 05/03/17 11:45 Vital Signs Temperature 98.2 F 05/03/17 09:33 Pulse Rate 68 05/03/17 09:33 Respiratory Rate 18 05/03/17 09:33 Blood Pressure 92/57 05/03/17 09:33 O2 Sat by Pulse Oximetry (%) Laboratory Tests 04/30/17 05/01/17 05/01/17 21:30 08:20 08:20 WBC 5.2 RBC 3.23 L Hgb 10.8 L Hct 32.1 L MCV 99.5 H MCH 33.4 MCHC 33.6 RDW 13.0 Plt Count 103 L MPV 8.9 Sodium 139 Potassium 4.1 Chloride 107 Carbon Dioxide 28 Anion Gap 4 L BUN 15 D Creatinine 1.0 Creat Clearance w eGFR > 60 Random Glucose 98 Calcium 8.5 Total Bilirubin 0.3 D AST 26 D ALT 25 Alkaline Phosphatase 75 Total Protein 6.1 L Albumin 3.1 L Urine Color Kaylee Urine Appearance Cloudy Urine pH 5.0 Ur Specific [place] 1.034 Urine Protein 1+ H Urine Glucose (UA) Negative Urine Ketones Trace H Urine Blood Negative Urine Nitrite Negative Urine Bilirubin Negative Urine Urobilinogen 2.0 Ur Leukocyte Esterase Negative Urine WBC (Auto) 1 Urine RBC (Auto) 4 Ur Epithelial Cells Rare Calcium Oxalate Crystal Moderate Urine Mucus Many RPR Titer 05/01/17 08:20 WBC RBC Hgb Hct MCV MCH MCHC RDW Plt Count MPV Sodium Potassium Chloride Carbon Dioxide Anion Gap BUN Creatinine Creat Clearance w eGFR Random Glucose Calcium Total Bilirubin AST ALT Alkaline Phosphatase Total Protein Albumin Urine Color Urine Appearance Urine pH Ur Specific [place] Urine Protein Urine Glucose (UA) Urine Ketones Urine Blood Urine Nitrite Urine Bilirubin Urine Urobilinogen Ur Leukocyte Esterase Urine WBC (Auto) Urine RBC (Auto) Ur Epithelial Cells Calcium Oxalate Crystal Urine Mucus RPR Titer Nonreactive aaox3 ambulating no acute distress Assessment: 05/03/17 11:46 withdrawal sx Plan: continue detox increase fluids colace tid
[2017-05-03] MEDS: DOCUSATE SODIUM 100 MG CAPSULE (FP) PO SCH ×2 (14:46→22:27)
[2017-05-03] MEDS: THIAMINE HCL 100 MG TABLET (FP) PO SCH (22:28)
[2017-05-04] MEDS: DOCUSATE SODIUM 100 MG CAPSULE (FP) PO SCH ×3 (06:31→22:25)
[2017-05-04] MEDS ORDERED: METHADONE HCL 10 MG TABLET (FOR DETOX USE ONLY) PO ONE (10:00)
[2017-05-04] MEDS: PRENATAL VITAMINS W/ FOLIC ACID TABLET (FP) PO SCH (10:22)
--- NOTE | 2017-05-04 11:12 | PN ---
BHS Progress Note (SOAP) Subjective: interrupted sleep anxiety Objective: 05/04/17 11:14 Vital Signs Temperature 99.3 F 05/04/17 09:25 Pulse Rate 58 L 05/04/17 09:25 Respiratory Rate 16 05/04/17 09:25 Blood Pressure 110/71 05/04/17 09:25 O2 Sat by Pulse Oximetry (%) aaox3 ambulating no acute distress Assessment: 05/04/17 11:15 withdrawal sx Plan: continue detox d/c in am
[2017-05-04] MEDS: THIAMINE HCL 100 MG TABLET (FP) PO SCH (22:25)
[2017-05-05] MEDS: DOCUSATE SODIUM 100 MG CAPSULE (FP) PO SCH (05:46)
[2017-05-05] MEDS ORDERED: METHADONE HCL 5 MG TABLET (FOR DETOX USE ONLY) PO ONE (06:00)
--- NOTE | 2017-05-05 08:56 | DS ---
[facility] Detox Discharge Summary Admission Date: 04/30/17 Discharge Date: 05/05/17 - History Present History: Cannabis Dependence, Opioid Dependence - Physical Exam Results Vital Signs: Vital Signs Temperature 97.3 F L 05/05/17 06:16 Pulse Rate 62 05/05/17 06:16 Respiratory Rate 16 05/05/17 06:16 Blood Pressure 102/50 05/05/17 06:16 O2 Sat by Pulse Oximetry (%) - Treatment Hospital Course: Detox Protocol Followed, Detoxed Safely, Responded well, Discharged Condition Good, Rehab Referral Accepted - Medication Discharge Medications: Ambulatory Orders NK [No Known Home Medication] 03/15/17 - Diagnosis (1) Cocaine dependence, uncomplicated Current Visit: Yes Status: Chronic (2) History of positive PPD Current Visit: Yes Status: Acute (3) Opioid dependence with withdrawal Current Visit: Yes Status: Chronic (4) Cannabis dependence, uncomplicated Current Visit: Yes Status: Chronic (5) Nicotine dependence Current Visit: Yes Status: Chronic Qualifiers: Nicotine product type: cigarettes Substance use status: uncomplicated Qualified Code(s): F17.210 - Nicotine dependence, cigarettes, uncomplicated (6) Cannabis abuse Current Visit: Yes Status: Acute (7) Insomnia Current Visit: No Status: Acute - AMA Did Patient Leave Against Medical Advice: No
[2017-05-05 10:09] VITALS: BP 117/74; PULSE 61; TEMP 99.5
== END 2017-05-05 09:55 | disposition home or self-care (01) | DRG 773 ==
LOC: YASAS 13:24 → Y6N 17:35 → UNDOADMIN 17:35
PROVIDERS: ADMIT Internal Medicine; ATTEND Internal Medicine
PROC: HZ2ZZZZ Detoxification Services for Substance Abuse Treatment (ICD-10-PCS; principal; 2017-04-30)
DX: F11.23 Opioid dependence with withdrawal (principal); F14.20 Cocaine dependence, uncomplicated; F12.20 Cannabis dependence, uncomplicated; F17.210 Nicotine dependence, cigarettes, uncomplicated; G47.00 Insomnia, unspecified; R76.11 Nonspecific reaction to tuberculin skin test without active tuberculosis
CPT/HCPCS: 36415; 80053; 81003; 81015; 85027; 86593; 93005; 93010

== ENCOUNTER 2017-08-16 12:13 | Inpatient (IN) | payer OTHER ==
[2017-08-16 12:25] VITALS: BMI 23.2
[2017-08-16] MEDS ORDERED: MENTHOL/PHENOL 1 EACH UD MM PRN (14:20)
[2017-08-16] MEDS ORDERED: guaiFENesin/D-METHORPHAN HB 10 ML UNIT-DOSE CUPS PO PRN (14:20)
[2017-08-16] MEDS ORDERED: P-EPHED 60MG/TRIPROLIDI 2.5MG TABLET PO PRN (14:20)
[2017-08-16] MEDS ORDERED: LOPERAMIDE HCL 2 MG CAPSULE PO PRN (14:20)
[2017-08-16] MEDS ORDERED: MAGNESIUM CITRATE 300 ML BOTTLE PO PRN (14:20)
[2017-08-16] MEDS ORDERED: ACETAMINOPHEN 325 MG TABLET (FP) PO PRN (14:20)
[2017-08-16] MEDS ORDERED: IBUPROFEN 400 MG TABLET (FP) PO PRN (14:20)
[2017-08-16] MEDS ORDERED: MAGNESIUM HYDROX 2400MG/30ML ORAL SUSPENSION 30 ML CUP PO PRN (14:20)
[2017-08-16] MEDS ORDERED: NICOTINE POLACRILEX 2 MG GUM BUC PRN (14:20)
[2017-08-16] MEDS ORDERED: MAG HYDROX/AL HYDROX/SIMETH 30 ML UNIT-DOSE CUP PO PRN (14:20)
--- NOTE | 2017-08-16 14:23 | HP ---
COWS - Scale Resting Pulse: 1= [place] 81-100 Sweatin= Chills/Flushing Restless Observation: 1= Difficult to Sit Still Pupil Size: 1= Pupils >than Normal Bone or Joint Aches: 1= Mild Discomfort Runny Nose/ Eye Tearin= Runny Nose/Eyes GI Upset > 30mins: 1= Stomach Cramp Tremor Observation: 2= Slight Tremor Visible Yawning Observation: 2= >3x During Session Anxiety or Irritability: 2=Irritable/Anxious Goose Flesh Skin: 3=Piloerection COWS Score: 17 Admission [facility] Chief Complaint: withdrawal sx Allergies/Adverse Reactions: Allergies Allergy/AdvReac Type Severity Reaction Status Date / Time No Known Allergies Allergy Verified 08/16/17 14:17 History of Present Illness: 62 years old male with long history of opiate nicotine dependence has positive ppd weight loss Exam Limitations: No Limitations - Ebola screening Have you traveled outside of the country in the last 21 days: No Have you had contact with anyone from an Ebola affected area: No Have you been sick,other than usual withdrawal symptoms: No Do you have a fever: No - Review of Systems Constitutional: Loss of Appetite, Changes in sleep, Unintentional Wgt. Loss, Unexplained wgt Loss EENT: reports: No Symptoms Reported Respiratory: reports: No Symptoms reported Cardiac: reports: No Symptoms Reported GI: reports: Diarrhea, Nausea, Poor Appetite, Poor Fluid Intake, Abdominal cramping : reports: No Symptoms Reported Musculoskeletal: reports: No Symptoms Reported Integumentary: reports: No Symptoms Reported, Other (history of right axillary abscess self treated with friend's penicillin x 3 doses right axillary no erythema no swell no pain none tender) Neuro: reports: Tremors Endocrine: reports: No Symptoms Reported Hematology: reports: No Symptoms Reported Psychiatric: reports: Judgement Intact, Orientated x3, Depressed Other Systems: Reviewed and Negative Patient History - Patient Medical History Hx Anemia: No Hx Asthma: No Hx Chronic Obstructive Pulmonary Disease (COPD): No Hx Cancer: No Hx Cardiac Disorders: No Hx Congestive Heart Failure: No Hx Hypertension: No Hx Hypercholesterolemia: No Hx Pacemaker: No HX Cerebrovascular Accident: No Hx Seizures: No Hx Dementia: No Hx Diabetes: No Hx Gastrointestinal Disorders: No Hx Liver Disease: No Hx Genitourinary Disorders: No Hx Sexually Transmitted Disorders: No Hx Renal Disease (ESRD): No Hx Thyroid Disease: No Hx Human Immunodeficiency Virus (HIV): No (Negative History.) Hx Hepatitis C: No (Last Tested: 02/2017: NEGATIVE.) Hx Depression: Yes Hx Suicide Attempt: No (PATIENT DENIES CURRENT SI / HI.) Hx Bipolar Disorder: No Hx Schizophrenia: No - Patient Surgical History Past Surgical History: No Hx Neurologic Surgery: No Hx Cataract Extraction: No Hx Cardiac Surgery: No Hx Lung Surgery: No Hx Breast Surgery: No Hx Breast Biopsy: No Hx Abdominal Surgery: No Hx Appendectomy: No Hx Cholecystectomy: No Hx Genitourinary Surgery: No Hx Orthopedic Surgery: No Other Surgical History: DENIES. - PPD History Previous Implant?: Yes Documented Results: Positive w/o proof Implanted On Prior R Admission?: No PPD to be Administered?: No - Smoking Cessation Smoking history: Current every day smoker Have you smoked in the past 12 months: Yes Aproximately how many cigarettes per day: 10 Cigars Per Day: 0 Hx Chewing Tobacco Use: No Initiated information on smoking cessation: Yes 'Breaking Loose' booklet given: 08/16/17 - Substance & Tx. History Hx Alcohol Use: No Hx Substance Use: Yes Substance Use Type: Alcohol, Cocaine Hx Substance Use Treatment: Yes (04/2017) - Substances Abused street methadone Frequency: 1-3 times last 30 days Amount used: 40 Age of first use: 60 Date of Last Use: 08/11/17 Family Disease History - Family Disease History Family Disease History: Other: Father (Alcohol, .), Mother (Kidney disease, .) Admission Physical Exam S - Vital Signs Vital Signs: Vital Signs - 24 hr 08/16/17 12:23 Temperature 98.2 F Pulse Rate 81 Respiratory 18 Rate Blood Pressure 121/82 - Physical General Appearance: Yes: Appropriately Dressed, Moderate Distress, Thin, Tremorous, Irritable, Sweating, Anxious HEENTM: Yes: Hearing grossly Normal, Normal ENT Inspection, Normocephalic, Normal Voice Respiratory: Yes: Chest Non-Tender, Lungs Clear, Normal Breath Sounds, No Respiratory Distress, No Accessory Muscle Use Neck: Yes: Supple, Trachea in good position Breast: Yes: Breasts Symetrical Cardiology: Yes: Regular Rhythm, Regular Rate, S1, S2 Abdominal: Yes: Non Tender, Soft, Increased Bowel Sounds Genitourinary: Yes: Within Normal Limits Back: Yes: Normal Inspection Musculoskeletal: Yes: full range of Motion, Gait Steady, Back pain, Muscle Pain Extremities: Yes: Normal Range of Motion, Non-Tender, Tremors Neurological: Yes: Fully Oriented, Alert, Motor Strength 5/5, Normal Response, Depressed Affect Integumentary: Yes: Warm Lymphatic: Yes: Within Normal Limits - Diagnostic (1) Depression (emotion) Current Visit: Yes Status: Suspected Qualifiers: Depression Type: dysthymia Qualified Code(s): F34.1 - Dysthymic disorder (2) Positive PPD, treated Current Visit: Yes Status: Resolved (3) Weight loss Current Visit: Yes Status: Acute (4) Nicotine dependence Current Visit: Yes Status: Acute Qualifiers: Nicotine product type: cigarettes Substance use status: in withdrawal Qualified Code(s): F17.213 - Nicotine dependence, cigarettes, with withdrawal (5) Opioid dependence with withdrawal Current Visit: Yes Status: Acute Cleared for Admission S - Detox or Rehab [facility] Level of Care: Medically Managed Detox Regimen/Protocol: Methadone S Breath Alcohol Content Breath Alcohol Content: 0 Urine Drug Screen - Control Is Test Valid: Yes - Results Drug Screen Negative: No Urine Drug Screen Results: THC-Marijuana, CLAU-Cocaine, OPI-Opiates, MTD- Methadone
--- NOTE | 2017-08-16 15:19 | CONSULT ---
[facility] Psychiatric Consult - Data Date of interview: 08/16/17 Admission source: [facility] Identifying data: This is 62 years old male.single, living with roomates, unemployed, on PA with long history of opiOIDS, Alcohol qasim Nicotine, dependence has, as per urine sample positive for Cocaine, Cannabis as well, here for detox Substance Abuse History: Urine Drug Screen Results: THC-Marijuana, CLAU-Cocaine, OPI-Opiates, MTD-Methadone. - Smoking Cessation. Smoking history: Current every day smoker. Have you smoked in the past 12 months: Yes. Aproximately how many cigarettes per day: 10. Cigars Per Day: 0. Hx Chewing Tobacco Use: No. Initiated information on smoking cessation: Yes. 'Breaking Loose' booklet given: 08/16/17. - Substance & Tx. History. Hx Alcohol Use: No. Hx Substance Use: Yes. Substance Use Type: Alcohol, Cocaine. Hx Substance Use Treatment: Yes (04/2017). - Substances Abused. street methadone. Frequency: 1-3 times last 30 days. Amount used: 40. Age of first use: 60. Date of Last Use: 08/11/17 Medical History: PPD+ history, WEeight loss history Psychiatric History: Patient reports history of depression, reports no medications taking p-riormto admission, denies suicidal history as well Physical/Sexual Abuse/Trauma History: Denies Additional Comment: Urine Drug Screen Results: THC-Marijuana, CLAU-Cocaine, OPI- Opiates, MTD-Methadone. Observation. Detox Unit Care Protocol Mental Status Exam - Mental Status Exam Alert and Oriented to: Person Cognitive Function: Fair Patient Appearance: Unkempt Mood: Anxious, Irritable Affect: Labile Patient Behavior: Impulsive, Talkative, Agitated Speech Pattern: Excessive Voice Loudness: Mildly Loud Thought Process: Circumstantial Thought Disorder: Being Controlled Hallucinations: Denies Suicidal Ideation: Denies Homicidal Ideation: Denies Insight/Judgement: Fair Sleep: Difficulty falling asleep Appetite: Weight loss Muscle strength/Tone: Normal Gait/Station: Normal Additional Comments: Observation. Detox Unit Care Protocol Psychiatric Findings - Problem List ([place] 1, 2,3) (1) Drug-induced mood disorder Current Visit: Yes Status: Acute (2) ADHD Current Visit: Yes Status: Acute (3) Nicotine dependence Current Visit: Yes Status: Acute Qualifiers: Nicotine product type: cigarettes Substance use status: in withdrawal Qualified Code(s): F17.213 - Nicotine dependence, cigarettes, with withdrawal (4) Opioid dependence with withdrawal Current Visit: Yes Status: Acute (5) Weight loss Current Visit: Yes Status: Acute (6) Cannabis abuse Current Visit: No Status: Acute (7) Cannabis dependence, uncomplicated Current Visit: No Status: Chronic (8) Cocaine dependence, uncomplicated Current Visit: No Status: Chronic - Initial Treatment Plan Initial Treatment Plan: Observation. Detox Unit Care Protocol
[2017-08-16] MEDS ORDERED: METHADONE HCL 10 MG TABLET (FOR DETOX USE ONLY) PO ONE ×2 (15:30→23:00)
[2017-08-16] MEDS ORDERED: METHADONE HCL 10 MG TABLET (FOR DETOX USE ONLY) ONE (18:20)
[2017-08-16] MEDS: diazePAM 5 MG TABLET PO PRN ×2 (18:25→22:12)
[2017-08-16] MEDS: THIAMINE HCL 100 MG TABLET (FP) PO SCH (22:12)
[2017-08-17] MEDS ORDERED: METHADONE HCL 10 MG TABLET (FOR DETOX USE ONLY) PO ONE (10:00)
[2017-08-17] MEDS: NICOTINE 14 MG/24 HOURS TOPICAL PATCH TD SCH (10:00)
--- NOTE | 2017-08-17 10:08 | PN ---
S CIWA - CIWA Score Nausea/Vomitin-Mild Nausea/No Vomiting Muscle Tremors: 4-Moderate,w/Arms Extend Anxiety: 4-Mod. Anxious/Guarded Agitation: 4-Moderately Restless Paroxysmal Sweats: 1-Minimal Palms Moist Orientation: 0-Oriented Tacttile Disturbances: 0-None Auditory Disturbances: 0-None Visual Disturbances: 0-None Headache: 0-None Present CIWA-Ar Total Score: 14 BHS Progress Note (SOAP) Subjective: sweat tremor anxiety mild gi upset Objective: 08/17/17 10:07 Vital Signs Temperature 97.5 F L 08/17/17 09:40 Pulse Rate 64 08/17/17 09:40 Respiratory Rate 18 08/17/17 09:40 Blood Pressure 120/70 08/17/17 09:40 O2 Sat by Pulse Oximetry (%) lab not available at this time Assessment: 08/17/17 10:07 withdrawal sx Plan: continue detox
[2017-08-17 10:12] LABS: HEMATOCRIT 29.9 % (35.4-49); MCH 33.9 pg (25.7-33.7); MCHC 33.3 g/dl (32.0-35.9); MEAN CELL VOLUME 101.6 fl (80-96); MEAN PLT VOLUME 8.3 fl (7.5-11.1); PLATELET COUNT 129 K/MM3 (134-434); RBC 2.94 M/mm3 (4.00-5.60); RDW 13.6 % (11.9-15.9)
--- NOTE | 2017-08-17 10:13 | PN ---
BHS COWS - Scale Resting Pulse: 0= [place] 80 or Below Sweatin= Chills/Flushing Restless Observation: 1= Difficult to Sit Still Pupil Size: 1= Pupils >than Normal Bone or Joint Aches: 2= Severe Diffuse Aches Runny Nose/ Eye Tearin= Runny Nose/Eyes GI Upset > 30mins: 1= Stomach Cramp Tremor Observation of Outstretched Hands: 2= Slight Tremor Visible Yawning Observation: 2= >3x During Session Anxiety or Irritability: 2=Irritable/Anxious Goose Flesh Skin: 0=Smooth Skin COWS Score: 14 BHS Progress Note (SOAP) Subjective: joint pain muscle cramp running nose tearing eyes sweat tremor Objective: 08/17/17 10:11 Vital Signs Temperature 97.5 F L 08/17/17 09:40 Pulse Rate 64 08/17/17 09:40 Respiratory Rate 18 08/17/17 09:40 Blood Pressure 120/70 08/17/17 09:40 O2 Sat by Pulse Oximetry (%) lab not available at this time Assessment: 08/17/17 10:11 withdrawal sx 08/17/17 10:12 mild fluid volume deficit Plan: continue detox increase oral fluid
[2017-08-17 10:33] LABS: CHLORIDE 109 mmol/L (98-107); POTASSIUM 4.2 mmol/L (3.5-5.1); SODIUM 143 mmol/L (136-145)
[2017-08-17 10:41] LABS: ALBUMIN 2.8 g/dl (3.4-5.0); ALK PHOS 65 U/L (45-117); ANION GAP 8 (8-16); BILIRUBIN,TOTAL 0.4 mg/dL (0.2-1.0); BLOOD UREA NITROGEN 18 mg/dL (7-18); CALCIUM 8.4 mg/dL (8.5-10.1); CO2 26 mmol/L (21-32); CREATININE 0.7 mg/dL (0.7-1.3); GLUCOSE,RANDOM 86 mg/dL (74-106); SGOT/AST 48 U/L (15-37); SGPT/ALT 43 U/L (12-78); TOT PROT 5.9 g/dl (6.4-8.2)
[2017-08-17] MEDS: PRENATAL VITAMINS W/ FOLIC ACID TABLET (FP) PO SCH (12:31)
[2017-08-17] MEDS: THIAMINE HCL 100 MG TABLET (FP) PO SCH (22:36)
[2017-08-17] MEDS: diazePAM 5 MG TABLET PO PRN (22:36)
--- NOTE | 2017-08-18 00:56 | EKG ---
Test Reason : Blood Pressure : / mmHG Vent. Rate : 057 BPM Atrial Rate : 057 BPM P-R Int : 144 ms QRS Dur : 076 ms QT Int : 416 ms P-R-T Axes : 073 029 023 degrees QTc Int : 404 ms SINUS BRADYCARDIA POSSIBLE LEFT ATRIAL ENLARGEMENT BORDERLINE ECG WHEN COMPARED WITH ECG OF 30-APR-2017 19:31, NO SIGNIFICANT CHANGE WAS FOUND Confirmed by AIDA GAMINO MD ([id number]) on 08/18/2017 12:55:31 AM Referred By: Confirmed By:AIDA GAMINO MD
[2017-08-18] MEDS ORDERED: METHADONE HCL 5 MG TABLET (FOR DETOX USE ONLY) PO ONE (10:00)
[2017-08-18] MEDS ORDERED: COLLOIDAL OATMEAL 1 BAR EACH TP PRN (10:39)
--- NOTE | 2017-08-18 10:42 | PN ---
BHS Progress Note (SOAP) Subjective: joint pain muscle aches sweat tremor restlessness anxiety irritable Objective: 08/18/17 10:42 Vital Signs Temperature 96.6 F L 08/18/17 10:00 Pulse Rate 66 08/18/17 10:00 Respiratory Rate 18 08/18/17 10:00 Blood Pressure 104/66 08/18/17 10:00 O2 Sat by Pulse Oximetry (%) Laboratory Last Values WBC 4.0 K/mm3 (4.0-10.0) 08/17/17 07:00 RBC 2.94 M/mm3 (4.00-5.60) L 08/17/17 07:00 Hgb 10.0 GM/dL (11.7-16.9) L 08/17/17 07:00 Hct 29.9 % (35.4-49) L 08/17/17 07:00 MCV 101.6 fl (80-96) H 08/17/17 07:00 MCH 33.9 pg (25.7-33.7) H 08/17/17 07:00 MCHC 33.3 g/dl (32.0-35.9) 08/17/17 07:00 RDW 13.6 % (11.9-15.9) 08/17/17 07:00 Plt Count 129 K/MM3 (134-434) L D 08/17/17 07:00 MPV 8.3 fl (7.5-11.1) 08/17/17 07:00 Sodium 143 mmol/L (136-145) 08/17/17 07:00 Potassium 4.2 mmol/L (3.5-5.1) 08/17/17 07:00 Chloride 109 mmol/L (98-107) H 08/17/17 07:00 Carbon Dioxide 26 mmol/L (21-32) 08/17/17 07:00 Anion Gap 8 (8-16) 08/17/17 07:00 BUN 18 mg/dL (7-18) 08/17/17 07:00 Creatinine 0.7 mg/dL (0.7-1.3) D 08/17/17 07:00 Creat Clearance w eGFR > 60 (>60) 08/17/17 07:00 Random Glucose 86 mg/dL (74-106) 08/17/17 07:00 Calcium 8.4 mg/dL (8.5-10.1) L 08/17/17 07:00 Total Bilirubin 0.4 mg/dL (0.2-1.0) D 08/17/17 07:00 AST 48 U/L (15-37) H D 08/17/17 07:00 ALT 43 U/L (12-78) D 08/17/17 07:00 Alkaline Phosphatase 65 U/L (45-117) 08/17/17 07:00 Total Protein 5.9 g/dl (6.4-8.2) L 08/17/17 07:00 Albumin 2.8 g/dl (3.4-5.0) L 08/17/17 07:00 RPR Titer Nonreactive (NONREACTIVE) 08/17/17 07:00 lab noted Assessment: 08/18/17 10:42 withdrawal sx Plan: continue detox
[2017-08-18] MEDS: PRENATAL VITAMINS W/ FOLIC ACID TABLET (FP) PO SCH (10:46)
[2017-08-18] MEDS: NICOTINE 14 MG/24 HOURS TOPICAL PATCH TD SCH (10:46)
[2017-08-18 13:20] LABS: URINE APPEARANCE CLEAR; URINE BILIRUBIN NEGATIVE (NEGATIVE); URINE BLOOD NEGATIVE (NEGATIVE); URINE COLOR YELLOW; URINE GLUCOSE (UA) NEGATIVE (NEGATIVE); URINE KETONE NEGATIVE (NEGATIVE); URINE LEUK ESTERASE NEGATIVE (NEGATIVE); URINE NITRITE NEGATIVE (NEGATIVE); URINE PROTEIN NEGATIVE (NEGATIVE); URINE UROBILINOGEN NEGATIVE mg/dL (0.2-1.0)
[2017-08-18] MEDS: THIAMINE HCL 100 MG TABLET (FP) PO SCH (22:50)
[2017-08-18] MEDS: diazePAM 5 MG TABLET PO PRN (22:50)
[2017-08-19] MEDS ORDERED: METHADONE HCL 5 MG TABLET (FOR DETOX USE ONLY) PO ONE (10:00)
[2017-08-19] MEDS: NICOTINE 14 MG/24 HOURS TOPICAL PATCH TD SCH (10:20)
[2017-08-19] MEDS: PRENATAL VITAMINS W/ FOLIC ACID TABLET (FP) PO SCH (10:20)
--- NOTE | 2017-08-19 12:00 | PN ---
BHS Progress Note (SOAP) Subjective: feeling better able to sleep through the night well rested no tremor less sweat denies pain calm and social with peers Objective: 08/19/17 11:59 Vital Signs Temperature 96.0 F L 08/19/17 10:00 Pulse Rate 64 08/19/17 10:00 Respiratory Rate 18 08/19/17 10:00 Blood Pressure 103/57 08/19/17 10:00 O2 Sat by Pulse Oximetry (%) Laboratory Last Values WBC 4.0 K/mm3 (4.0-10.0) 08/17/17 07:00 RBC 2.94 M/mm3 (4.00-5.60) L 08/17/17 07:00 Hgb 10.0 GM/dL (11.7-16.9) L 08/17/17 07:00 Hct 29.9 % (35.4-49) L 08/17/17 07:00 MCV 101.6 fl (80-96) H 08/17/17 07:00 MCH 33.9 pg (25.7-33.7) H 08/17/17 07:00 MCHC 33.3 g/dl (32.0-35.9) 08/17/17 07:00 RDW 13.6 % (11.9-15.9) 08/17/17 07:00 Plt Count 129 K/MM3 (134-434) L D 08/17/17 07:00 MPV 8.3 fl (7.5-11.1) 08/17/17 07:00 Sodium 143 mmol/L (136-145) 08/17/17 07:00 Potassium 4.2 mmol/L (3.5-5.1) 08/17/17 07:00 Chloride 109 mmol/L (98-107) H 08/17/17 07:00 Carbon Dioxide 26 mmol/L (21-32) 08/17/17 07:00 Anion Gap 8 (8-16) 08/17/17 07:00 BUN 18 mg/dL (7-18) 08/17/17 07:00 Creatinine 0.7 mg/dL (0.7-1.3) D 08/17/17 07:00 Creat Clearance w eGFR > 60 (>60) 08/17/17 07:00 Random Glucose 86 mg/dL (74-106) 08/17/17 07:00 Calcium 8.4 mg/dL (8.5-10.1) L 08/17/17 07:00 Total Bilirubin 0.4 mg/dL (0.2-1.0) D 08/17/17 07:00 AST 48 U/L (15-37) H D 08/17/17 07:00 ALT 43 U/L (12-78) D 08/17/17 07:00 Alkaline Phosphatase 65 U/L (45-117) 08/17/17 07:00 Total Protein 5.9 g/dl (6.4-8.2) L 08/17/17 07:00 Albumin 2.8 g/dl (3.4-5.0) L 08/17/17 07:00 Urine Color Yellow 08/18/17 12:30 Urine Appearance Clear 08/18/17 12:30 Urine pH 7.0 (5.0-8.0) D 08/18/17 12:30 Ur Specific [place] 1.013 (1.001-1.035) 08/18/17 12:30 Urine Protein Negative (NEGATIVE) 08/18/17 12:30 Urine Glucose (UA) Negative (NEGATIVE) 08/18/17 12:30 Urine Ketones Negative (NEGATIVE) 08/18/17 12:30 Urine Blood Negative (NEGATIVE) 08/18/17 12:30 Urine Nitrite Negative (NEGATIVE) 08/18/17 12:30 Urine Bilirubin Negative (NEGATIVE) 08/18/17 12:30 Urine Urobilinogen Negative mg/dL (0.2-1.0) 08/18/17 12:30 Ur Leukocyte Esterase Negative (NEGATIVE) 08/18/17 12:30 RPR Titer Nonreactive (NONREACTIVE) 08/17/17 07:00 lab noted Assessment: mild withdrawal sx Plan: medically supervised detox
[2017-08-19] MEDS: THIAMINE HCL 100 MG TABLET (FP) PO SCH (22:57)
[2017-08-20] MEDS ORDERED: METHADONE HCL 10 MG TABLET (FOR DETOX USE ONLY) PO ONE (10:00)
[2017-08-20] MEDS: PRENATAL VITAMINS W/ FOLIC ACID TABLET (FP) PO SCH (10:37)
[2017-08-20] MEDS: NICOTINE 14 MG/24 HOURS TOPICAL PATCH TD SCH (10:37)
--- NOTE | 2017-08-20 14:37 | PN ---
BHS Progress Note (SOAP) Subjective: interrupted sleep, but better Objective: 08/20/17 14:35 Vital Signs Temperature 96.3 F L 08/20/17 13:39 Pulse Rate 74 08/20/17 13:39 Respiratory Rate 19 08/20/17 13:39 Blood Pressure 116/65 08/20/17 13:39 O2 Sat by Pulse Oximetry (%) Laboratory Tests 08/17/17 08/17/17 08/17/17 07:00 07:00 07:00 WBC 4.0 RBC 2.94 L Hgb 10.0 L Hct 29.9 L MCV 101.6 H MCH 33.9 H MCHC 33.3 RDW 13.6 Plt Count 129 L D MPV 8.3 Sodium 143 Potassium 4.2 Chloride 109 H Carbon Dioxide 26 Anion Gap 8 BUN 18 Creatinine 0.7 D Creat Clearance w eGFR > 60 Random Glucose 86 Calcium 8.4 L Total Bilirubin 0.4 D AST 48 H D ALT 43 D Alkaline Phosphatase 65 Total Protein 5.9 L Albumin 2.8 L Urine Color Urine Appearance Urine pH Ur Specific [place] Urine Protein Urine Glucose (UA) Urine Ketones Urine Blood Urine Nitrite Urine Bilirubin Urine Urobilinogen Ur Leukocyte Esterase RPR Titer Nonreactive 08/18/17 12:30 WBC RBC Hgb Hct MCV MCH MCHC RDW Plt Count MPV Sodium Potassium Chloride Carbon Dioxide Anion Gap BUN Creatinine Creat Clearance w eGFR Random Glucose Calcium Total Bilirubin AST ALT Alkaline Phosphatase Total Protein Albumin Urine Color Yellow Urine Appearance Clear Urine pH 7.0 D Ur Specific [place] 1.013 Urine Protein Negative Urine Glucose (UA) Negative Urine Ketones Negative Urine Blood Negative Urine Nitrite Negative Urine Bilirubin Negative Urine Urobilinogen Negative Ur Leukocyte Esterase Negative RPR Titer pt aox3 sitting up in bed eating Assessment: 08/20/17 14:36 withdrawal sx;s Plan: cont. detox increase fluids d/c in am
[2017-08-20] MEDS: THIAMINE HCL 100 MG TABLET (FP) PO SCH (21:57)
[2017-08-21] MEDS ORDERED: METHADONE HCL 5 MG TABLET (FOR DETOX USE ONLY) PO ONE (06:00)
[2017-08-21 09:41] VITALS: BP 109/69; PULSE 60; TEMP 97.7
--- NOTE | 2017-08-21 15:00 | PN ---
S Progress Note (SOAP) Subjective: 08/21/17 14:58 feels okay no new complaint Objective: 08/21/17 14:59 A & o x 3 gait steady no acute distress Vital Signs Temperature 97.7 F 08/21/17 09:41 Pulse Rate 60 08/21/17 09:41 Respiratory Rate 20 08/21/17 09:41 Blood Pressure 109/69 08/21/17 09:41 O2 Sat by Pulse Oximetry (%) Assessment: 08/21/17 14:59 detox successfully completed Plan: For discharge
--- NOTE | 2017-08-21 15:05 | DS ---
[facility] Detox Discharge Summary Admission Date: 08/16/17 Discharge Date: 08/21/17 - History Additional Comments: For discharge To do o/p rehab at [facility] No med prescription - Physical Exam Results Vital Signs: Vital Signs Temperature 97.7 F 08/21/17 09:41 Pulse Rate 60 08/21/17 09:41 Respiratory Rate 20 08/21/17 09:41 Blood Pressure 109/69 08/21/17 09:41 O2 Sat by Pulse Oximetry (%) Pertinent Admission Physical Exam Findings: withdrawal sx - Treatment Hospital Course: Detox Protocol Followed, Detoxed Safely, Responded well, Discharged Condition Good, Rehab Referral Accepted Patient has Accepted a Rehab Referral to: O/P at [facility] - Medication Discharge Medications: Ambulatory Orders NK [No Known Home Medication] 03/15/17 - Diagnosis (1) Opioid dependence with withdrawal Status: Acute (2) Cannabis dependence, uncomplicated Status: Chronic (3) Cocaine dependence, uncomplicated Status: Chronic (4) Nicotine dependence Status: Chronic Qualifiers: Nicotine product type: cigarettes Substance use status: in withdrawal Qualified Code(s): F17.213 - Nicotine dependence, cigarettes, with withdrawal
== END 2017-08-21 10:10 | disposition home or self-care (01) | DRG 773 ==
LOC: YASAS 12:13 → Y6N 15:09
PROVIDERS: ADMIT Internal Medicine; ATTEND Internal Medicine
PROC: HZ2ZZZZ Detoxification Services for Substance Abuse Treatment (ICD-10-PCS; principal; 2017-08-16)
DX: F11.23 Opioid dependence with withdrawal (principal); F14.20 Cocaine dependence, uncomplicated; F12.20 Cannabis dependence, uncomplicated; F17.210 Nicotine dependence, cigarettes, uncomplicated; F19.24 Other psychoactive substance dependence with psychoactive substance-induced mood disorder; F90.9 Attention-deficit hyperactivity disorder, unspecified type; R63.4 Abnormal weight loss; Z68.23 Body mass index [BMI] 23.0-23.9, adult
CPT/HCPCS: 36415; 80053; 81003; 85027; 86593; 93005; 93010

== ENCOUNTER 2017-09-24 13:46 | Inpatient (IN) | payer OTHER ==
[2017-09-24 17:09] VITALS: BMI 23.0
--- NOTE | 2017-09-24 17:11 | HP ---
COWS - Scale Resting Pulse: 0= [place] 80 or Below Sweatin=Flushed/Facial Moisture Restless Observation: 1= Difficult to Sit Still Pupil Size: 1= Pupils >than Normal Bone or Joint Aches: 2= Severe Diffuse Aches Runny Nose/ Eye Tearin= Runny Nose/Eyes GI Upset > 30mins: 1= Stomach Cramp Tremor Observation: 1= Tremor [place], Not Seen Yawning Observation: 1= 1-2x During Session Anxiety or Irritability: 1=Feels Anxious/Irritable Goose Flesh Skin: 0=Smooth Skin COWS Score: 12 Admission [facility] Chief Complaint: Heroin withdrawal symptoms. Allergies/Adverse Reactions: Allergies Allergy/AdvReac Type Severity Reaction Status Date / Time No Known Allergies Allergy Verified 09/24/17 16:57 History of Present Illness: Patient presents with Heroin withdrawal symptoms. Patient started sniffing heroin at age 20 and smoking crack cocaine at age 27. Patient uses 2 bags daily and smokes 2 bags of cocaine/crack twice weekly. States taking non-prescribed Methadone as well. Pt denies overdosing on heroin. No reported seizures. Completed detox in 08/18/17 here at [facility]. Relapsed one week post discharge. Patient denies PMH/PSH. Denies SI/HI/suicide attempts. Exam Limitations: No Limitations - Ebola screening Have you traveled outside of the country in the last 21 days: No Have you had contact with anyone from an Ebola affected area: No Have you been sick,other than usual withdrawal symptoms: No Do you have a fever: No - Review of Systems Constitutional: Night Sweats, Changes in sleep, Unexplained wgt Loss EENT: reports: Tearing, Nose Congestion Respiratory: reports: No Symptoms reported Cardiac: reports: No Symptoms Reported GI: reports: Poor Fluid Intake : reports: No Symptoms Reported Musculoskeletal: reports: Back Pain, Muscle Pain Integumentary: reports: Sweating Neuro: reports: Tremors Endocrine: reports: No Symptoms Reported Hematology: reports: No Symptoms Reported Psychiatric: reports: Orientated x3, Anxious, Depressed Patient History - Patient Medical History Hx Anemia: No Hx Asthma: No Hx Chronic Obstructive Pulmonary Disease (COPD): No Hx Cancer: No Hx Cardiac Disorders: No Hx Congestive Heart Failure: No Hx Hypertension: No Hx Hypercholesterolemia: No Hx Pacemaker: No HX Cerebrovascular Accident: No Hx Seizures: No Hx Dementia: No Hx Diabetes: No Hx Gastrointestinal Disorders: No Hx Liver Disease: No Hx Genitourinary Disorders: No Hx Sexually Transmitted Disorders: No Hx Renal Disease (ESRD): No Hx Thyroid Disease: No Hx Human Immunodeficiency Virus (HIV): No (Negative History.) Hx Hepatitis C: No (Last Tested: 02/2017: NEGATIVE.) Hx Depression: Yes Hx Suicide Attempt: No (PATIENT DENIES CURRENT SI / HI.) Hx Bipolar Disorder: No Hx Schizophrenia: No - Patient Surgical History Past Surgical History: No Hx Neurologic Surgery: No Hx Cataract Extraction: No Hx Cardiac Surgery: No Hx Lung Surgery: No Hx Breast Surgery: No Hx Breast Biopsy: No Hx Abdominal Surgery: No Hx Appendectomy: No Hx Cholecystectomy: No Hx Genitourinary Surgery: No Hx Section: No Hx Orthopedic Surgery: No Other Surgical History: DENIES. Anesthesia Reaction: No - PPD History Previous Implant?: Yes Documented Results: Positive w/proof Results: CXR neg 05/2017 PPD to be Administered?: No - Smoking Cessation Smoking history: Current every day smoker Have you smoked in the past 12 months: Yes Aproximately how many cigarettes per day: 10 Cigars Per Day: 0 Hx Chewing Tobacco Use: No Initiated information on smoking cessation: Yes 'Breaking Loose' booklet given: 09/24/17 - Substance & Tx. History Hx Alcohol Use: No Hx Substance Use: Yes Substance Use Type: Cocaine, Heroin Hx Substance Use Treatment: Yes - Substances Abused Heroin Route: Inhalation Frequency: Daily Amount used: 2 BAGS Age of first use: 20 Date of Last Use: 09/23/17 Cocaine Route: Inhalation Frequency: 1-2 times per week Amount used: 2 BAGS Age of first use: 27 Date of Last Use: 09/23/17 Family Disease History - Family Disease History Family Disease History: Other: Father (Alcohol, .), Mother (Kidney disease, .) Admission Physical Exam S - Physical General Appearance: Yes: Disheveled, Thin, Anxious HEENTM: Yes: Within Normal Limits, EOMI, Hearing grossly Normal, Normal ENT Inspection, Normocephalic, Normal Voice, ZEUS, Pharynx Normal Respiratory: Yes: Within Normal Limits, Chest Non-Tender, Lungs Clear, Normal Breath Sounds, No Respiratory Distress, No Accessory Muscle Use Neck: Yes: Within Normal Limits, No masses,lesions,Nodules, Supple Breast: Yes: Breast Exam Deferred Cardiology: Yes: Regular Rhythm, Regular Rate, S1, S2 Abdominal: Yes: Within Normal Limits, Normal Bowel Sounds, Non Tender, Flat, Soft Genitourinary: Yes: Within Normal Limits Back: Yes: Muscle Spasm Musculoskeletal: Yes: Gait Steady, Back pain, Muscle Pain Extremities: Yes: Normal Inspection, Normal Range of Motion, Non-Tender Neurological: Yes: Fully Oriented, Alert, Motor Strength 5/5, Depressed Affect Integumentary: Yes: Warm, Moist Lymphatic: Yes: Within Normal Limits - Diagnostic (1) Cocaine dependence Current Visit: Yes Status: Acute Qualifiers: Substance use status: uncomplicated Qualified Code(s): F14.20 - Cocaine dependence, uncomplicated (2) Depressed affect Current Visit: Yes Status: Acute (3) History of positive PPD Current Visit: No Status: Chronic Comment: Treated. (4) Opioid dependence with withdrawal Current Visit: Yes Status: Acute (5) Nicotine dependence Current Visit: Yes Status: Acute Qualifiers: Substance use status: uncomplicated Cleared for Admission [facility] - Detox or Rehab [facility] Level of Care: Medically Managed Detox Regimen/Protocol: Methadone [facility] Breath Alcohol Content Breath Alcohol Content: 0 Urine Drug Screen - Results Urine Drug Screen Results: CLAU-Cocaine, MTD-Methadone
[2017-09-24] MEDS ORDERED: guaiFENesin/D-METHORPHAN HB 10 ML UNIT-DOSE CUPS PO PRN (17:26)
[2017-09-24] MEDS ORDERED: IBUPROFEN 400 MG TABLET (FP) PO PRN (17:26)
[2017-09-24] MEDS ORDERED: MAGNESIUM CITRATE 300 ML BOTTLE PO PRN (17:26)
[2017-09-24] MEDS ORDERED: hydrOXYzine PAMOATE 50 MG CAPSULE (FP) PO PRN (17:26)
[2017-09-24] MEDS ORDERED: MAGNESIUM HYDROX 2400MG/30ML ORAL SUSPENSION 30 ML CUP PO PRN (17:26)
[2017-09-24] MEDS ORDERED: MAG HYDROX/AL HYDROX/SIMETH 30 ML UNIT-DOSE CUP PO PRN (17:26)
[2017-09-24] MEDS ORDERED: P-EPHED 60MG/TRIPROLIDI 2.5MG TABLET PO PRN (17:26)
[2017-09-24] MEDS ORDERED: LOPERAMIDE HCL 2 MG CAPSULE PO PRN (17:26)
[2017-09-24] MEDS ORDERED: NICOTINE POLACRILEX 2 MG GUM BC PRN (17:26)
[2017-09-24] MEDS ORDERED: ACETAMINOPHEN 325 MG TABLET (FP) PO PRN (17:26)
[2017-09-24] MEDS ORDERED: MENTHOL/PHENOL 1 EACH UD MM PRN (17:26)
[2017-09-24] MEDS ORDERED: METHADONE HCL 10 MG TABLET (FOR DETOX USE ONLY) PO ONE ×2 (18:00→23:00)
[2017-09-24] MEDS: THIAMINE HCL 100 MG TABLET (FP) PO SCH (22:20)
[2017-09-25] MEDS ORDERED: METHADONE HCL 10 MG TABLET (FOR DETOX USE ONLY) PO ONE (10:00)
[2017-09-25] MEDS: PRENATAL VITAMINS W/ FOLIC ACID TABLET (FP) PO SCH (10:09)
[2017-09-25] MEDS: NICOTINE 21 MG/24 HOURS TOPICAL PATCH TD SCH (10:10)
[2017-09-25] MEDS: diazePAM 5 MG TABLET PO PRN (10:10)
[2017-09-25 10:19] LABS: HEMOGLOBIN 11.6 GM/dL (11.7-16.9); MCH 34.4 pg (25.7-33.7); MEAN CELL VOLUME 101.4 fl (80-96); MEAN PLT VOLUME 8.8 fl (7.5-11.1); PLATELET COUNT 125 K/MM3 (134-434); RBC 3.36 M/mm3 (4.00-5.60); WHITE BLOOD COUNT 4.6 K/mm3 (4.0-10.0)
[2017-09-25 10:29] LABS: ALBUMIN 3.3 g/dl (3.4-5.0); CHLORIDE 111 mmol/L (98-107); POTASSIUM 4.3 mmol/L (3.5-5.1); SODIUM 142 mmol/L (136-145)
[2017-09-25 10:36] LABS: ALK PHOS 81 U/L (45-117); ANION GAP 1 (8-16); BILIRUBIN,TOTAL 0.2 mg/dL (0.2-1.0); BLOOD UREA NITROGEN 21 mg/dL (7-18); CALCIUM 8.6 mg/dL (8.5-10.1); CO2 30 mmol/L (21-32); CREATININE 0.9 mg/dL (0.7-1.3); GLUCOSE,RANDOM 101 mg/dL (74-106); SGOT/AST 37 U/L (15-37); SGPT/ALT 36 U/L (12-78); TOT PROT 6.8 g/dl (6.4-8.2)
--- NOTE | 2017-09-25 11:06 | CONSULT ---
[facility] Psychiatric Consult - Data Date of interview: 09/25/17 Admission source: [facility] Identifying data: This is one of several admissions to [facility] for this 62 y/ o AA male seeking detox treatment on for heroin and cocaine dependence.Patient is single,a father of one,homeless,unemployed and supported on food stamps. Substance Abuse History: Confirmed by patient in this interview.Details in current [facility] report as follows : Smoking history: Current every day smoker. Have you smoked in the past 12 months: Yes. Aproximately how many cigarettes per day: 10. Cigars Per Day: 0. Hx Chewing Tobacco Use: No. Initiated information on smoking cessation: Yes. 'Breaking Loose' booklet given: . - Substance & Tx. History. Hx Alcohol Use: No. Hx Substance Use: Yes. Substance Use Type: Cocaine, Heroin. Hx Substance Use Treatment: Yes. - Substances Abused. Heroin. Route: Inhalation. Frequency: Daily. Amount used: 2 BAGS. Age of first use: 20. Date of Last Use: 09/23/17. Cocaine. Route: Inhalation. Frequency: 1-2 times per week. Amount used: 2 BAGS. Age of first use: 27. Date of Last Use: 09/23/17 Medical History: Patient endorses good general health.Noted history of positive PPD (treated). Psychiatric History: Patient denies. Physical/Sexual Abuse/Trauma History: Patient denies. Additional Comment: Urine Drug Screen Results: CLAU-Cocaine, MTD-Methadone.Noted. Mental Status Exam - Mental Status Exam Alert and Oriented to: Time, Place Cognitive Function: Good Patient Appearance: Unkempt, Disheveled Mood: Nervous, Withdrawn Affect: Appropriate, Normal Range Patient Behavior: Fatigued, Cooperative Speech Pattern: Clear Voice Loudness: Normal Thought Process: Intact, Goal Oriented Thought Disorder: Not Present Hallucinations: Denies Suicidal Ideation: Denies Homicidal Ideation: Denies Insight/Judgement: Poor Sleep: Well Appetite: Good Muscle strength/Tone: Normal Gait/Station: Normal Psychiatric Findings - Problem List ([place] 1, 2,3) (1) Opioid dependence with withdrawal Current Visit: Yes Status: Acute (2) Cocaine dependence Current Visit: Yes Status: Acute Qualifiers: Substance use status: uncomplicated Qualified Code(s): F14.20 - Cocaine dependence, uncomplicated (3) Nicotine dependence Current Visit: Yes Status: Acute Qualifiers: Nicotine product type: cigarettes Substance use status: in withdrawal Qualified Code(s): F17.213 - Nicotine dependence, cigarettes, with withdrawal - Initial Treatment Plan Initial Treatment Plan: Psychoeducation.Detoxification in progress.Observation.
--- NOTE | 2017-09-25 11:35 | EKG ---
Test Reason : Blood Pressure : / mmHG Vent. Rate : 055 BPM Atrial Rate : 055 BPM P-R Int : 144 ms QRS Dur : 090 ms QT Int : 428 ms P-R-T Axes : 071 031 002 degrees QTc Int : 409 ms SINUS BRADYCARDIA POSSIBLE LEFT ATRIAL ENLARGEMENT BORDERLINE ECG WHEN COMPARED WITH ECG OF 24-SEP-2017 19:27, CRITERIA FOR SEPTAL INFARCT ARE NO LONGER PRESENT Confirmed by JOSELYN HUERTA, AYLEEN ([id number]) on 09/25/2017 11:34:37 AM Referred By: Confirmed By:AYLEEN ALVES MD
--- NOTE | 2017-09-25 11:37 | EKG ---
Test Reason : Blood Pressure : / mmHG Vent. Rate : 061 BPM Atrial Rate : 061 BPM P-R Int : 146 ms QRS Dur : 084 ms QT Int : 420 ms P-R-T Axes : 074 046 017 degrees QTc Int : 422 ms NORMAL SINUS RHYTHM POSSIBLE LEFT ATRIAL ENLARGEMENT SEPTAL INFARCT , AGE UNDETERMINED ABNORMAL ECG WHEN COMPARED WITH ECG OF 16-AUG-2017 16:19, SEPTAL INFARCT IS NOW PRESENT Confirmed by JOSELYN HUERTA, AYLEEN ([id number]) on 09/25/2017 11:36:33 AM Referred By: Confirmed By:AYLEEN ALVES MD
--- NOTE | 2017-09-25 12:59 | PN ---
BHS COWS - Scale Resting Pulse: 0= [place] 80 or Below Sweatin= No chills or Flushing Restless Observation: 1= Difficult to Sit Still Pupil Size: 0= Normal to Room Light Bone or Joint Aches: 1= Mild Discomfort Runny Nose/ Eye Tearin= Runny Nose/Eyes GI Upset > 30mins: 1= Stomach Cramp Tremor Observation of Outstretched Hands: 0= None Yawning Observation: 2= >3x During Session Anxiety or Irritability: 2=Irritable/Anxious Goose Flesh Skin: 3=Piloerection COWS Score: 12 BHS Progress Note (SOAP) Subjective: Interrupted Sleep, Fatigue, Stomach Cramping, Body Aches. Objective: PATIENT A & O X 3. NO ACUTE DISTRESS. 09/25/17 12:56 Vital Signs Temperature 96.9 F L 09/25/17 09:29 Pulse Rate 60 09/25/17 09:29 Respiratory Rate 16 09/25/17 09:29 Blood Pressure 102/63 09/25/17 09:29 O2 Sat by Pulse Oximetry (%) Laboratory Tests 09/25/17 09/25/17 09/25/17 07:40 07:40 07:40 WBC 4.6 RBC 3.36 L Hgb 11.6 L D Hct 34.0 L MCV 101.4 H MCH 34.4 H MCHC 34.0 RDW 13.0 Plt Count 125 L MPV 8.8 Sodium 142 Potassium 4.3 Chloride 111 H Carbon Dioxide 30 Anion Gap 1 L BUN 21 H Creatinine 0.9 D Creat Clearance w eGFR > 60 Random Glucose 101 Calcium 8.6 Total Bilirubin 0.2 D AST 37 D ALT 36 Alkaline Phosphatase 81 D Total Protein 6.8 Albumin 3.3 L RPR Titer Nonreactive LABS NOTED. UA RESULTS PENDING. 09/25/17 12:59 Assessment: 09/25/17 12:58 WITHDRAWAL SYMPTOMS. Plan: CONTINUE DETOX. INCREASE DAILY PO FLUID INTAKE.
[2017-09-25 15:20] LABS: URINE APPEARANCE CLEAR; URINE BILIRUBIN NEGATIVE (<2.0 mg/dL); URINE BLOOD NEGATIVE (NEGATIVE); URINE COLOR YELLOW; URINE GLUCOSE (UA) NEGATIVE (NEGATIVE); URINE KETONE NEGATIVE (NEGATIVE); URINE LEUK ESTERASE NEGATIVE (NEGATIVE); URINE NITRITE NEGATIVE (NEGATIVE); URINE PROTEIN NEGATIVE (NEGATIVE)
[2017-09-25] MEDS: MELATONIN 5 MG TABLETS PO PRN (22:52)
[2017-09-25] MEDS: THIAMINE HCL 100 MG TABLET (FP) PO SCH (22:52)
[2017-09-26] MEDS ORDERED: METHADONE HCL 5 MG TABLET (FOR DETOX USE ONLY) PO ONE (10:00)
[2017-09-26] MEDS: PRENATAL VITAMINS W/ FOLIC ACID TABLET (FP) PO SCH (10:03)
[2017-09-26] MEDS: NICOTINE 21 MG/24 HOURS TOPICAL PATCH TD SCH (10:04)
[2017-09-26] MEDS: diazePAM 5 MG TABLET PO PRN (10:04)
[2017-09-26] MEDS ORDERED: COLLOIDAL OATMEAL 1 BAR EACH TP PRN (12:35)
--- NOTE | 2017-09-26 13:52 | PN ---
S CIWA - CIWA Score Nausea/Vomitin-No Nausea/No Vomiting BHS COWS - Scale Resting Pulse: 0= [place] 80 or Below Sweatin=Flushed/Facial Moisture Restless Observation: 0= Sits Still Pupil Size: 0= Normal to Room Light Bone or Joint Aches: 2= Severe Diffuse Aches Runny Nose/ Eye Tearin= Runny Nose/Eyes GI Upset > 30mins: 0= None Tremor Observation of Outstretched Hands: 2= Slight Tremor Visible Yawning Observation: 2= >3x During Session Anxiety or Irritability: 2=Irritable/Anxious Goose Flesh Skin: 0=Smooth Skin COWS Score: 12 BHS Progress Note (SOAP) Subjective: Body Aches, Tremors, Sweating, Fatigue. Objective: PATIENT A & O X 3, OBSERVED AMBULATING ON UNIT. NO ACUTE DISTRESS. 09/26/17 13:52 Vital Signs Temperature 98.4 F 09/26/17 11:09 Pulse Rate 66 09/26/17 11:09 Respiratory Rate 16 09/26/17 11:09 Blood Pressure 117/72 09/26/17 11:09 O2 Sat by Pulse Oximetry (%) Laboratory Tests 09/25/17 09/25/17 09/25/17 07:40 07:40 07:40 WBC 4.6 RBC 3.36 L Hgb 11.6 L D Hct 34.0 L MCV 101.4 H MCH 34.4 H MCHC 34.0 RDW 13.0 Plt Count 125 L MPV 8.8 Sodium 142 Potassium 4.3 Chloride 111 H Carbon Dioxide 30 Anion Gap 1 L BUN 21 H Creatinine 0.9 D Creat Clearance w eGFR > 60 Random Glucose 101 Calcium 8.6 Total Bilirubin 0.2 D AST 37 D ALT 36 Alkaline Phosphatase 81 D Total Protein 6.8 Albumin 3.3 L Urine Color Urine Appearance Urine pH Ur Specific [place] Urine Protein Urine Glucose (UA) Urine Ketones Urine Blood Urine Nitrite Urine Bilirubin Urine Urobilinogen Ur Leukocyte Esterase RPR Titer Nonreactive 09/25/17 09:20 WBC RBC Hgb Hct MCV MCH MCHC RDW Plt Count MPV Sodium Potassium Chloride Carbon Dioxide Anion Gap BUN Creatinine Creat Clearance w eGFR Random Glucose Calcium Total Bilirubin AST ALT Alkaline Phosphatase Total Protein Albumin Urine Color Yellow Urine Appearance Clear Urine pH 5.0 D Ur Specific [place] 1.025 Urine Protein Negative Urine Glucose (UA) Negative Urine Ketones Negative Urine Blood Negative Urine Nitrite Negative Urine Bilirubin Negative Urine Urobilinogen 2.0 Ur Leukocyte Esterase Negative RPR Titer LABS NOTED. Assessment: 09/26/17 13:53 WITHDRAWAL SYMPTOMS. Plan: CONTINUE DETOX. INCREASE DAILY PO FLUID INTAKE.
[2017-09-26] MEDS: THIAMINE HCL 100 MG TABLET (FP) PO SCH (22:49)
[2017-09-27] MEDS: diazePAM 5 MG TABLET PO PRN (09:20)
[2017-09-27] MEDS ORDERED: METHADONE HCL 5 MG TABLET (FOR DETOX USE ONLY) PO ONE (10:00)
[2017-09-27] MEDS: PRENATAL VITAMINS W/ FOLIC ACID TABLET (FP) PO SCH (10:03)
--- NOTE | 2017-09-27 10:39 | PN ---
S Progress Note (SOAP) Subjective: ANXIETY,FATIGUE,SWEATS,HEADACHE. Objective: 09/27/17 10:37 Vital Signs Temperature 96.3 F L 09/27/17 09:05 Pulse Rate 58 L 09/27/17 09:05 Respiratory Rate 18 09/27/17 09:05 Blood Pressure 103/67 09/27/17 09:05 O2 Sat by Pulse Oximetry (%) Laboratory Last Values WBC 4.6 K/mm3 (4.0-10.0) 09/25/17 07:40 RBC 3.36 M/mm3 (4.00-5.60) L 09/25/17 07:40 Hgb 11.6 GM/dL (11.7-16.9) L D 09/25/17 07:40 Hct 34.0 % (35.4-49) L 09/25/17 07:40 MCV 101.4 fl (80-96) H 09/25/17 07:40 MCH 34.4 pg (25.7-33.7) H 09/25/17 07:40 MCHC 34.0 g/dl (32.0-35.9) 09/25/17 07:40 RDW 13.0 % (11.9-15.9) 09/25/17 07:40 Plt Count 125 K/MM3 (134-434) L 09/25/17 07:40 MPV 8.8 fl (7.5-11.1) 09/25/17 07:40 Sodium 142 mmol/L (136-145) 09/25/17 07:40 Potassium 4.3 mmol/L (3.5-5.1) 09/25/17 07:40 Chloride 111 mmol/L (98-107) H 09/25/17 07:40 Carbon Dioxide 30 mmol/L (21-32) 09/25/17 07:40 Anion Gap 1 (8-16) L 09/25/17 07:40 BUN 21 mg/dL (7-18) H 09/25/17 07:40 Creatinine 0.9 mg/dL (0.7-1.3) D 09/25/17 07:40 Creat Clearance w eGFR > 60 (>60) 09/25/17 07:40 Random Glucose 101 mg/dL (74-106) 09/25/17 07:40 Calcium 8.6 mg/dL (8.5-10.1) 09/25/17 07:40 Total Bilirubin 0.2 mg/dL (0.2-1.0) D 09/25/17 07:40 AST 37 U/L (15-37) D 09/25/17 07:40 ALT 36 U/L (12-78) 09/25/17 07:40 Alkaline Phosphatase 81 U/L (45-117) D 09/25/17 07:40 Total Protein 6.8 g/dl (6.4-8.2) 09/25/17 07:40 Albumin 3.3 g/dl (3.4-5.0) L 09/25/17 07:40 Urine Color Yellow 09/25/17 09:20 Urine Appearance Clear 09/25/17 09:20 Urine pH 5.0 (5.0-8.0) D 09/25/17 09:20 Ur Specific [place] 1.025 (1.001-1.035) 09/25/17 09:20 Urine Protein Negative (NEGATIVE) 09/25/17 09:20 Urine Glucose (UA) Negative (NEGATIVE) 09/25/17 09:20 Urine Ketones Negative (NEGATIVE) 09/25/17 09:20 Urine Blood Negative (NEGATIVE) 09/25/17 09:20 Urine Nitrite Negative (NEGATIVE) 09/25/17 09:20 Urine Bilirubin Negative (<2.0 mg/dL) 09/25/17 09:20 Urine Urobilinogen 2.0 mg/dL (0.2-1.0) 09/25/17 09:20 Ur Leukocyte Esterase Negative (NEGATIVE) 09/25/17 09:20 RPR Titer Nonreactive (NONREACTIVE) 09/25/17 07:40 Assessment: 09/27/17 10:37 WITHDRAWAL SX Plan: CONTINUE DETOX TYLENOL PRN
[2017-09-27] MEDS: NICOTINE 21 MG/24 HOURS TOPICAL PATCH TD SCH (10:56)
[2017-09-27] MEDS: MELATONIN 5 MG TABLETS PO PRN (22:07)
[2017-09-27] MEDS: THIAMINE HCL 100 MG TABLET (FP) PO SCH (22:07)
[2017-09-28] MEDS ORDERED: METHADONE HCL 10 MG TABLET (FOR DETOX USE ONLY) PO ONE (10:00)
--- NOTE | 2017-09-28 10:07 | PN ---
S Progress Note (SOAP) Subjective: ALERT O X 3. LYING IN BED AND IN NAD. DETOX PROCEEDING WELL. Objective: 09/28/17 10:07 Vital Signs Temperature 98.1 F 09/28/17 09:12 Pulse Rate 60 09/28/17 09:12 Respiratory Rate 18 09/28/17 09:12 Blood Pressure 95/54 09/28/17 09:12 O2 Sat by Pulse Oximetry (%) Laboratory Last Values WBC 4.6 K/mm3 (4.0-10.0) 09/25/17 07:40 RBC 3.36 M/mm3 (4.00-5.60) L 09/25/17 07:40 Hgb 11.6 GM/dL (11.7-16.9) L D 09/25/17 07:40 Hct 34.0 % (35.4-49) L 09/25/17 07:40 MCV 101.4 fl (80-96) H 09/25/17 07:40 MCH 34.4 pg (25.7-33.7) H 09/25/17 07:40 MCHC 34.0 g/dl (32.0-35.9) 09/25/17 07:40 RDW 13.0 % (11.9-15.9) 09/25/17 07:40 Plt Count 125 K/MM3 (134-434) L 09/25/17 07:40 MPV 8.8 fl (7.5-11.1) 09/25/17 07:40 Sodium 142 mmol/L (136-145) 09/25/17 07:40 Potassium 4.3 mmol/L (3.5-5.1) 09/25/17 07:40 Chloride 111 mmol/L (98-107) H 09/25/17 07:40 Carbon Dioxide 30 mmol/L (21-32) 09/25/17 07:40 Anion Gap 1 (8-16) L 09/25/17 07:40 BUN 21 mg/dL (7-18) H 09/25/17 07:40 Creatinine 0.9 mg/dL (0.7-1.3) D 09/25/17 07:40 Creat Clearance w eGFR > 60 (>60) 09/25/17 07:40 Random Glucose 101 mg/dL (74-106) 09/25/17 07:40 Calcium 8.6 mg/dL (8.5-10.1) 09/25/17 07:40 Total Bilirubin 0.2 mg/dL (0.2-1.0) D 09/25/17 07:40 AST 37 U/L (15-37) D 09/25/17 07:40 ALT 36 U/L (12-78) 09/25/17 07:40 Alkaline Phosphatase 81 U/L (45-117) D 09/25/17 07:40 Total Protein 6.8 g/dl (6.4-8.2) 09/25/17 07:40 Albumin 3.3 g/dl (3.4-5.0) L 09/25/17 07:40 Urine Color Yellow 09/25/17 09:20 Urine Appearance Clear 09/25/17 09:20 Urine pH 5.0 (5.0-8.0) D 09/25/17 09:20 Ur Specific [place] 1.025 (1.001-1.035) 09/25/17 09:20 Urine Protein Negative (NEGATIVE) 09/25/17 09:20 Urine Glucose (UA) Negative (NEGATIVE) 09/25/17 09:20 Urine Ketones Negative (NEGATIVE) 09/25/17 09:20 Urine Blood Negative (NEGATIVE) 09/25/17 09:20 Urine Nitrite Negative (NEGATIVE) 09/25/17 09:20 Urine Bilirubin Negative (<2.0 mg/dL) 09/25/17 09:20 Urine Urobilinogen 2.0 mg/dL (0.2-1.0) 09/25/17 09:20 Ur Leukocyte Esterase Negative (NEGATIVE) 09/25/17 09:20 RPR Titer Nonreactive (NONREACTIVE) 09/25/17 07:40 Assessment: 09/28/17 10:07 WITHDRAWAL SX Plan: CONTINUE DETOX
[2017-09-28] MEDS: NICOTINE 21 MG/24 HOURS TOPICAL PATCH TD SCH (10:11)
[2017-09-28] MEDS: PRENATAL VITAMINS W/ FOLIC ACID TABLET (FP) PO SCH (10:11)
[2017-09-28] MEDS: THIAMINE HCL 100 MG TABLET (FP) PO SCH (22:02)
[2017-09-28] MEDS: MELATONIN 5 MG TABLETS PO PRN (22:02)
[2017-09-29] MEDS ORDERED: METHADONE HCL 5 MG TABLET (FOR DETOX USE ONLY) PO ONE (06:00)
[2017-09-29 09:05] VITALS: BP 111/63; PULSE 69; TEMP 98.3
[2017-09-29] MEDS: PRENATAL VITAMINS W/ FOLIC ACID TABLET (FP) PO SCH (10:05)
[2017-09-29] MEDS: NICOTINE 21 MG/24 HOURS TOPICAL PATCH TD SCH (10:06)
--- NOTE | 2017-09-29 10:22 | PN ---
BHS Progress Note (SOAP) Subjective: DETOX COMPLETED. ALERT O X 3. REFERRED TO [facility] TODAY. Objective: 09/29/17 10:22 Vital Signs Temperature 98.3 F 09/29/17 09:04 Pulse Rate 69 09/29/17 09:04 Respiratory Rate 18 09/29/17 09:04 Blood Pressure 111/63 09/29/17 09:04 O2 Sat by Pulse Oximetry (%) Laboratory Last Values WBC 4.6 K/mm3 (4.0-10.0) 09/25/17 07:40 RBC 3.36 M/mm3 (4.00-5.60) L 09/25/17 07:40 Hgb 11.6 GM/dL (11.7-16.9) L D 09/25/17 07:40 Hct 34.0 % (35.4-49) L 09/25/17 07:40 MCV 101.4 fl (80-96) H 09/25/17 07:40 MCH 34.4 pg (25.7-33.7) H 09/25/17 07:40 MCHC 34.0 g/dl (32.0-35.9) 09/25/17 07:40 RDW 13.0 % (11.9-15.9) 09/25/17 07:40 Plt Count 125 K/MM3 (134-434) L 09/25/17 07:40 MPV 8.8 fl (7.5-11.1) 09/25/17 07:40 Sodium 142 mmol/L (136-145) 09/25/17 07:40 Potassium 4.3 mmol/L (3.5-5.1) 09/25/17 07:40 Chloride 111 mmol/L (98-107) H 09/25/17 07:40 Carbon Dioxide 30 mmol/L (21-32) 09/25/17 07:40 Anion Gap 1 (8-16) L 09/25/17 07:40 BUN 21 mg/dL (7-18) H 09/25/17 07:40 Creatinine 0.9 mg/dL (0.7-1.3) D 09/25/17 07:40 Creat Clearance w eGFR > 60 (>60) 09/25/17 07:40 Random Glucose 101 mg/dL (74-106) 09/25/17 07:40 Calcium 8.6 mg/dL (8.5-10.1) 09/25/17 07:40 Total Bilirubin 0.2 mg/dL (0.2-1.0) D 09/25/17 07:40 AST 37 U/L (15-37) D 09/25/17 07:40 ALT 36 U/L (12-78) 09/25/17 07:40 Alkaline Phosphatase 81 U/L (45-117) D 09/25/17 07:40 Total Protein 6.8 g/dl (6.4-8.2) 09/25/17 07:40 Albumin 3.3 g/dl (3.4-5.0) L 09/25/17 07:40 Urine Color Yellow 09/25/17 09:20 Urine Appearance Clear 09/25/17 09:20 Urine pH 5.0 (5.0-8.0) D 09/25/17 09:20 Ur Specific [place] 1.025 (1.001-1.035) 09/25/17 09:20 Urine Protein Negative (NEGATIVE) 09/25/17 09:20 Urine Glucose (UA) Negative (NEGATIVE) 09/25/17 09:20 Urine Ketones Negative (NEGATIVE) 09/25/17 09:20 Urine Blood Negative (NEGATIVE) 09/25/17 09:20 Urine Nitrite Negative (NEGATIVE) 09/25/17 09:20 Urine Bilirubin Negative (<2.0 mg/dL) 09/25/17 09:20 Urine Urobilinogen 2.0 mg/dL (0.2-1.0) 09/25/17 09:20 Ur Leukocyte Esterase Negative (NEGATIVE) 09/25/17 09:20 RPR Titer Nonreactive (NONREACTIVE) 09/25/17 07:40 Assessment: 09/29/17 10:22 MEDICALLY STABLE Plan: D/C PT TODAY
--- NOTE | 2017-09-29 10:24 | DS ---
[facility] Detox Discharge Summary Admission Date: 09/24/17 Discharge Date: 09/29/17 - History Present History: Alcohol Dependence, Cocaine Dependence, MMTP Additional Comments: DETOX COMPLETED. ALERT O X 3. NAD. Pertinent Past History: PLEASE SEE DX BELOW - Physical Exam Results Vital Signs: Vital Signs Temperature 98.3 F 09/29/17 09:04 Pulse Rate 69 09/29/17 09:04 Respiratory Rate 18 09/29/17 09:04 Blood Pressure 111/63 09/29/17 09:04 O2 Sat by Pulse Oximetry (%) Pertinent Admission Physical Exam Findings: WITHDRAWAL SX Laboratory Tests 09/25/17 09/25/17 09/25/17 07:40 07:40 07:40 WBC 4.6 RBC 3.36 L Hgb 11.6 L D Hct 34.0 L MCV 101.4 H MCH 34.4 H MCHC 34.0 RDW 13.0 Plt Count 125 L MPV 8.8 Sodium 142 Potassium 4.3 Chloride 111 H Carbon Dioxide 30 Anion Gap 1 L BUN 21 H Creatinine 0.9 D Creat Clearance w eGFR > 60 Random Glucose 101 Calcium 8.6 Total Bilirubin 0.2 D AST 37 D ALT 36 Alkaline Phosphatase 81 D Total Protein 6.8 Albumin 3.3 L Urine Color Urine Appearance Urine pH Ur Specific [place] Urine Protein Urine Glucose (UA) Urine Ketones Urine Blood Urine Nitrite Urine Bilirubin Urine Urobilinogen Ur Leukocyte Esterase RPR Titer Nonreactive 09/25/17 09:20 WBC RBC Hgb Hct MCV MCH MCHC RDW Plt Count MPV Sodium Potassium Chloride Carbon Dioxide Anion Gap BUN Creatinine Creat Clearance w eGFR Random Glucose Calcium Total Bilirubin AST ALT Alkaline Phosphatase Total Protein Albumin Urine Color Yellow Urine Appearance Clear Urine pH 5.0 D Ur Specific [place] 1.025 Urine Protein Negative Urine Glucose (UA) Negative Urine Ketones Negative Urine Blood Negative Urine Nitrite Negative Urine Bilirubin Negative Urine Urobilinogen 2.0 Ur Leukocyte Esterase Negative RPR Titer - Treatment Hospital Course: Detox Protocol Followed, Detoxed Safely, Responded well, Discharged Condition Good, Rehab Referral Accepted Patient has Accepted a [facility] - Medication Discharge Medications: Ambulatory Orders NK [No Known Home Medication] 03/15/17 - Diagnosis (1) Cocaine dependence Current Visit: Yes Status: Acute Qualifiers: Substance use status: uncomplicated Qualified Code(s): F14.20 - Cocaine dependence, uncomplicated (2) Nicotine dependence Current Visit: Yes Status: Acute Qualifiers: Nicotine product type: cigarettes Substance use status: in withdrawal Qualified Code(s): F17.213 - Nicotine dependence, cigarettes, with withdrawal (3) Opioid dependence with withdrawal Current Visit: Yes Status: Acute (4) Weight loss Current Visit: Yes Status: Acute - AMA Did Patient Leave Against Medical Advice: No
== END 2017-09-29 12:23 | disposition other institution (70) | DRG 773 ==
LOC: YASAS 13:46 → Y3N 17:16
PROVIDERS: ADMIT Internal Medicine; ATTEND Internal Medicine
PROC: HZ2ZZZZ Detoxification Services for Substance Abuse Treatment (ICD-10-PCS; principal; 2017-09-24)
DX: F11.23 Opioid dependence with withdrawal (principal); F14.20 Cocaine dependence, uncomplicated; F17.213 Nicotine dependence, cigarettes, with withdrawal; F32.9 Major depressive disorder, single episode, unspecified; R76.11 Nonspecific reaction to tuberculin skin test without active tuberculosis; Z87.898 Personal history of other specified conditions
CPT/HCPCS: 36415; 80053; 81003; 85027; 86593; 93005; 93010

== ENCOUNTER 2017-09-29 12:53 | Inpatient (IN) | payer OTHER ==
[2017-09-29] MEDS ORDERED: ACETAMINOPHEN 325 MG TABLET (FP) PO PRN (13:37)
[2017-09-29] MEDS ORDERED: LOPERAMIDE HCL 2 MG CAPSULE PO PRN (13:37)
[2017-09-29] MEDS ORDERED: MENTHOL/PHENOL 1 EACH UD MM PRN (13:37)
[2017-09-29] MEDS ORDERED: MAGNESIUM HYDROX 2400MG/30ML ORAL SUSPENSION 30 ML CUP PO PRN (13:37)
[2017-09-29] MEDS ORDERED: MAG HYDROX/AL HYDROX/SIMETH 30 ML UNIT-DOSE CUP PO PRN (13:37)
[2017-09-29] MEDS ORDERED: IBUPROFEN 400 MG TABLET (FP) PO PRN (13:37)
[2017-09-29] MEDS ORDERED: MAGNESIUM CITRATE 300 ML BOTTLE PO PRN (13:37)
[2017-09-29] MEDS ORDERED: hydrOXYzine PAMOATE 50 MG CAPSULE (FP) PO PRN (13:37)
[2017-09-29] MEDS ORDERED: guaiFENesin/D-METHORPHAN HB 10 ML UNIT-DOSE CUPS PO PRN (13:37)
[2017-09-29] MEDS ORDERED: P-EPHED 60MG/TRIPROLIDI 2.5MG TABLET PO PRN (13:37)
[2017-09-29] MEDS: MELATONIN 5 MG TABLETS PO PRN (21:40)
[2017-09-29] MEDS: THIAMINE HCL 100 MG TABLET (FP) PO SCH (21:40)
[2017-09-30] MEDS: PRENATAL VITAMINS W/ FOLIC ACID TABLET (FP) PO SCH (10:12)
--- NOTE | 2017-09-30 13:31 | HP ---
Psychiatrist Admission - Data Date of interview: 09/30/17 Admission source: 3N Identifying data: This is the first 5N inpatient rehabilitation admission for this 62 y/o AA male who is single father of one, currently homeless and unemployed, supported on food stamps. Medical History: reports a good physical health, smokes cigaretets 5 a day. Psychiatric History: denies history of psychiatric treatment Physical/Sexual Abuse/Trauma History: denies history of sexual, physical and verbla abuse. Vital Signs: Vital Signs - 24 hr 09/30/17 09/30/17 09/30/17 00:36 03:30 07:03 Temperature 98.4 F Pulse Rate 67 Respiratory 16 18 16 Rate Blood Pressure 114/73 Allergies/Adverse Reactions: Allergies Allergy/AdvReac Type Severity Reaction Status Date / Time No Known Allergies Allergy Verified 09/29/17 15:55 Date of last physical exam: 09/29/17 Concur with the findings of this exam: Yes - Substance Abuse/Tx History Hx Alcohol Use: No Hx Substance Use: Yes Substance Use Type: Cocaine (once a week for $20), Heroin (2 bags daily) Hx Substance Use Treatment: Yes (several detox. tx) Mental Status Exam - Mental Status Exam Alert and Oriented to: Time, Place, Person Cognitive Function: Good Patient Appearance: Unkempt Mood: Hopeful Affect: Appropriate, Mood Congruent Patient Behavior: Appropriate, Cooperative Speech Pattern: Clear, Appropriate Voice Loudness: Normal Thought Process: Intact, Goal Oriented Thought Disorder: Not Present Hallucinations: Denies Suicidal Ideation: Denies Homicidal Ideation: Denies Insight/Judgement: Fair Sleep: Fair Appetite: Fair Muscle strength/Tone: Normal Gait/Station: Normal Psychiatric Findings - Problem List ([place] 1, 2,3) (1) Opioid dependence Current Visit: Yes Status: Acute (2) Cocaine dependence Current Visit: No Status: Acute Qualifiers: Substance use status: uncomplicated Qualified Code(s): F14.20 - Cocaine dependence, uncomplicated (3) Nicotine dependence Current Visit: No Status: Acute Qualifiers: Nicotine product type: cigarettes Substance use status: in withdrawal Qualified Code(s): F17.213 - Nicotine dependence, cigarettes, with withdrawal (4) Nicotine dependence Current Visit: No Status: Chronic Qualifiers: Nicotine product type: cigarettes Substance use status: in withdrawal Qualified Code(s): F17.213 - Nicotine dependence, cigarettes, with withdrawal - Initial Treatment Plan Initial Treatment Plan: monitor progress as needed
[2017-09-30] MEDS: THIAMINE HCL 100 MG TABLET (FP) PO SCH (21:50)
[2017-09-30] MEDS: MELATONIN 5 MG TABLETS PO PRN (21:50)
[2017-10-01] MEDS: PRENATAL VITAMINS W/ FOLIC ACID TABLET (FP) PO SCH (10:15)
[2017-10-01] MEDS: MELATONIN 5 MG TABLETS PO PRN (21:25)
[2017-10-01] MEDS: THIAMINE HCL 100 MG TABLET (FP) PO SCH (21:25)
[2017-10-02] MEDS: PRENATAL VITAMINS W/ FOLIC ACID TABLET (FP) PO SCH (10:35)
[2017-10-02] MEDS: THIAMINE HCL 100 MG TABLET (FP) PO SCH (21:35)
[2017-10-02] MEDS: MELATONIN 5 MG TABLETS PO PRN (21:35)
[2017-10-03] MEDS: PRENATAL VITAMINS W/ FOLIC ACID TABLET (FP) PO SCH (10:16)
[2017-10-03] MEDS: THIAMINE HCL 100 MG TABLET (FP) PO SCH (21:38)
[2017-10-03] MEDS: MELATONIN 5 MG TABLETS PO PRN (21:38)
[2017-10-04] MEDS: PRENATAL VITAMINS W/ FOLIC ACID TABLET (FP) PO SCH (10:12)
--- NOTE | 2017-10-04 13:38 | HP ---
[facility] Rehab Assess/Revision - Admission History Admitted to Rehab from: [facility] Date of Admission to Rehab: 09/29/2017 - Vital signs Vital Signs: Vital Signs Period Temp Pulse Resp BP Sys/Rai Pulse Ox Last 24 Hr 96.9 F 70 16-18 106/75 - Findings Detox History & Physical reviewed: Yes Concur with findings: Yes Inpatient Rehab Admission - Initial Determination Are CD services needed?: Yes Free of communicable disease: Yes Not in need of hospitalization: Yes - Rehab Admission Criteria Poor recovery environment: Yes Lacks judgement: Yes Patient is meeting Inpatient Rehab admission criteria:: Yes
--- NOTE | 2017-10-04 14:27 | PN ---
S Progress Note Note: patient c/o insomnia, discussed indications/properties of Belsomra, patient agreed to start, will add 10 mg po hs.
[2017-10-04] MEDS: SUVOREXANT 10 MG TABLET PO SCH (21:41)
[2017-10-04] MEDS: THIAMINE HCL 100 MG TABLET (FP) PO SCH (21:41)
[2017-10-05] MEDS: PRENATAL VITAMINS W/ FOLIC ACID TABLET (FP) PO SCH (10:07)
[2017-10-05] MEDS: THIAMINE HCL 100 MG TABLET (FP) PO SCH (21:27)
[2017-10-05] MEDS: SUVOREXANT 10 MG TABLET PO SCH (21:27)
[2017-10-06] MEDS: PRENATAL VITAMINS W/ FOLIC ACID TABLET (FP) PO SCH (10:26)
[2017-10-06] MEDS: SUVOREXANT 10 MG TABLET PO SCH (21:31)
[2017-10-06] MEDS: THIAMINE HCL 100 MG TABLET (FP) PO SCH (21:31)
[2017-10-07] MEDS: PRENATAL VITAMINS W/ FOLIC ACID TABLET (FP) PO SCH (10:24)
[2017-10-07] MEDS: THIAMINE HCL 100 MG TABLET (FP) PO SCH (21:37)
[2017-10-07] MEDS: SUVOREXANT 10 MG TABLET PO SCH (21:37)
[2017-10-08] MEDS: PRENATAL VITAMINS W/ FOLIC ACID TABLET (FP) PO SCH (10:18)
[2017-10-08] MEDS: SUVOREXANT 10 MG TABLET PO SCH (21:37)
[2017-10-08] MEDS: THIAMINE HCL 100 MG TABLET (FP) PO SCH (21:37)
[2017-10-09] MEDS: PRENATAL VITAMINS W/ FOLIC ACID TABLET (FP) PO SCH (10:09)
[2017-10-09] MEDS: COLLOIDAL OATMEAL 1 BAR EACH TP PRN (15:34)
[2017-10-09] MEDS: THIAMINE HCL 100 MG TABLET (FP) PO SCH (21:29)
[2017-10-09] MEDS: SUVOREXANT 10 MG TABLET PO SCH (21:29)
[2017-10-10] MEDS: PRENATAL VITAMINS W/ FOLIC ACID TABLET (FP) PO SCH (10:05)
[2017-10-10] MEDS: THIAMINE HCL 100 MG TABLET (FP) PO SCH (21:31)
[2017-10-10] MEDS: SUVOREXANT 10 MG TABLET PO SCH (21:33)
[2017-10-11] MEDS: PRENATAL VITAMINS W/ FOLIC ACID TABLET (FP) PO SCH (10:29)
[2017-10-11] MEDS: THIAMINE HCL 100 MG TABLET (FP) PO SCH (21:28)
[2017-10-11] MEDS: SUVOREXANT 10 MG TABLET PO PRN (23:36)
[2017-10-12] MEDS: PRENATAL VITAMINS W/ FOLIC ACID TABLET (FP) PO SCH (09:49)
--- NOTE | 2017-10-12 13:44 | PN ---
S Progress Note Note: On October 12 was contacted by [facility] regarding Belsomra order for [place] Belosomra 10mg p[o qhs was ordered.
[2017-10-12] MEDS: COLLOIDAL OATMEAL 1 BAR EACH TP PRN (15:45)
[2017-10-12] MEDS: THIAMINE HCL 100 MG TABLET (FP) PO SCH (21:33)
[2017-10-12] MEDS: SUVOREXANT 10 MG TABLET PO PRN (21:34)
[2017-10-13 06:53] VITALS: BP 123/82; PULSE 73; TEMP 98.2
[2017-10-13] MEDS: PRENATAL VITAMINS W/ FOLIC ACID TABLET (FP) PO SCH (09:56)
--- NOTE | 2017-10-13 09:59 | PN ---
Psychiatric Progress Note Vital Signs: Vital Signs Period Temp Pulse Resp BP Sys/Rai Pulse Ox Last 24 Hr 98.2 F 73 16 123/82 Date of Session: 10/13/17 Chief Complaint:: discharge visit HPI: Patient has addressed opioid, cocaine and nicotine dependence. ROS: WNL Current Medications: Active Medications Generic Name Dose Route Start Last Admin Trade Name Freq PRN Reason Stop Dose Admin Acetaminophen 650 mg 09/29/17 13:37 Tylenol - PO Q4H PRN FEVER Al Hydroxide/Mg Hydroxide 30 ml 09/29/17 13:37 Mylanta Oral Suspension - PO Q6H PRN DYSPEPSIA Colloidal Oatmeal 1 applic 09/29/17 13:37 10/12/17 15:45 Aveeno Soap - TP 1 applic DAILY PRN Administration HYGEINE Eucalyptus/Menthol/Phenol/Sorbitol 1 each 09/29/17 13:37 Cepastat Lozenge - MM Q4H PRN SORE THROAT Guaifenesin 10 ml 09/29/17 13:37 Robitussin Dm - PO Q6H PRN COUGH Hydroxyzine Pamoate 50 mg 09/29/17 13:37 Vistaril - PO Q4H PRN AGITATION Ibuprofen 400 mg 09/29/17 13:37 Motrin - PO Q6H PRN Pain Level 4-6 Loperamide HCl 4 mg 09/29/17 13:37 Imodium - PO Q6H PRN DIARRHEA Magnesium Citrate 300 ml 09/29/17 13:37 Citroma - PO Q48H PRN CONSTIPATION Magnesium Hydroxide 30 ml 09/29/17 13:37 10/05/17 10:08 Milk Of Magnesia - PO 30 ml DAILY PRN Administration CONSTIPATION Melatonin 5 mg 09/29/17 22:00 10/03/17 21:38 Melatonin PO 5 mg HS PRN Administration INSOMNIA Multivit/Folic Acid/Iron 1 tab 09/30/17 10:00 10/12/17 09:49 Vitamins ([facility]) - PO 1 tab DAILY FADUMO Administration Pseudoephedrine/Triprolidine 1 combo 09/29/17 13:37 Actifed - PO TID PRN NASAL CONGESTION Suvorexant 10 mg 10/11/17 22:48 10/12/17 21:34 Belsomra PO 10 mg HS PRN Administration INSOMNIA Thiamine HCl 100 mg 09/29/17 22:00 10/12/17 21:33 Vitamin B1 - PO 100 mg HS FADUMO Administration Current Side Effect: No Lab tests ordered: No Lab tests reviewed: Yes Provider note:: Patient has completed this program today. He has met his treatment goals and will continue to address his issues at [facility]. Patient reports that he has learned the importance of staying away from"People, Places and Things". Patient was encouraged to utilize all supports available to prevent relapses. He is stable for dicharge today Total face to face time:: 35 Mental Status Exam - Mental Status Exam Alert and Oriented to: Time, Place, Person Cognitive Function: Good Patient Appearance: Well Groomed Mood: Hopeful Affect: Appropriate, Mood Congruent Patient Behavior: Appropriate, Cooperative Speech Pattern: Clear, Appropriate Voice Loudness: Normal Thought Process: Intact, Goal Oriented Thought Disorder: Not Present Hallucinations: Denies Suicidal Ideation: Denies Homicidal Ideation: Denies Insight/Judgement: Fair Sleep: Fair Appetite: Fair Muscle strength/Tone: Normal Gait/Station: Normal Psychiatric Treatment Plan - Problem List (1) Opioid dependence Current Visit: Yes (2) Cocaine dependence Current Visit: No Qualifiers: Substance use status: uncomplicated Qualified Code(s): F14.20 - Cocaine dependence, uncomplicated (3) Nicotine dependence Current Visit: No Qualifiers: Nicotine product type: cigarettes Substance use status: in withdrawal Qualified Code(s): F17.213 - Nicotine dependence, cigarettes, with withdrawal (4) Nicotine dependence Current Visit: No Qualifiers: Nicotine product type: cigarettes Substance use status: in withdrawal Qualified Code(s): F17.213 - Nicotine dependence, cigarettes, with withdrawal
== END 2017-10-13 10:30 | disposition home or self-care (01) | DRG 772 ==
LOC: YASAS 12:53 → Y5N 12:55
PROVIDERS: ADMIT Psychiatry & Neurology Psychiatry; ATTEND Psychiatry & Neurology Psychiatry
PROC: HZ42ZZZ Group Counseling for Substance Abuse Treatment, Cognitive-Behavioral (ICD-10-PCS; principal; 2017-09-29)
DX: F11.20 Opioid dependence, uncomplicated (principal); F14.20 Cocaine dependence, uncomplicated; F17.213 Nicotine dependence, cigarettes, with withdrawal; G47.00 Insomnia, unspecified